=== PATIENT | male | born 1940 | race Caucasian/White ===

== ENCOUNTER 2020-03-08 11:02 | Inpatient (IN) | payer MEDICARE ==
[~2020-03-08] VITALS: Ht 170.2 cm; Wt 97.7 kg
[~2020-03-08 11:02] MED LIST: ALBU90OI61 INH; AMOX875 PO; ANDROGEL1.25 GM TD; ATEN25; ATEN50 PO; Antivert25 MG PO; Ativan0.5 MG PO; CEPH500 PO; CODGUAEL PO; CYCL10 PO; DIAZ5 PO; DIPATR PO; FOSI10 PO; HYDACE5 PO; HYDCHL25 PO; HYDMOR2 PO; IBUP400 PO; IBUP800 PO; LORA.5 PO; METF500C PO; NIAC500ER PO; Norco 5-325 Ta1 EACH PO; OMEP20ER PO; ONDA4ODT MM; OXYACE5T PO; PANT40 PO; PROCODE120 PO; PROP10 PO; PROP40 PO; Prednisone20 MG PO; SIMV10 PO; SIMV40 PO; SOMA350 MG PO; TADA10TA PO; Zithromax250 MG PO; Zofran Odt4 MG SL; [UNRECOGNIZED DRUG - OTHER]
[2020-03-08 12:08] LABS: BASOPHILS ABSOLUTE AUTO 0.08 K/mm3 (0.00-0.23); BASOPHILS PERCENT AUTO 1 % (0-2); EOSINOPHILS PERCENT AUTO 3 % (0-6); Hematocrit 46.7 % (37.0-53.0); Hemoglobin 14.5 g/dL (13.5-17.5); IMMATURE GRAN ABSOLUTE AUTO 0.01 K/mm3 (0.00-0.10); IMMATURE GRAN PERCENT AUTO 0 % (0-1); LYMPHOCYTES PERCENT AUTO 32 % (21-46); MONOCYTES ABSOLUTE AUTO 0.58 K/mm3 (0.16-1.47); MONOCYTES PERCENT AUTO 9 % (4-13); Mean Corpuscular HGB 26.6 pg (26.0-34.0); Mean Corpuscular Volume 86 fL (80-100); Mean Platelet Volume 9.4 fL (9.1-12.4); NEUTROPHILS ABSOLUTE AUTO 3.64 K/mm3 (1.96-9.15); NEUTROPHILS PERCENT AUTO 55 % (41-73); Platelet Count 209 K/mm3 (150-400); RDW Coefficient Variation 15.3 % (11.7-14.2); RDW Standard Deviation 47.2 fL (35.1-46.3); Red Blood Cell Count 5.45 M/mm3 (4.30-5.90); White Blood Cell Count 6.61 K/mm3 (4.00-11.30)
[2020-03-08 12:23] LABS: International Normalized Ratio 0.96; Prothrombin Time Results 10.3 Sec (9.7-11.5)
[2020-03-08 12:34] LABS: Alanine Aminotransfer (ALT/SGP 14 U/L (12-78); Albumin, Blood 2.8 g/dL (3.4-5.0); Albumin/Globulin Ratio 0.6 (0.8-1.8); Alk Phos 80 U/L (50-136); Anion Gap 7 mmol/L (6-16); Aspartate Aminotrans (AST/SGOT 17 U/L (12-37); Bilirubin, Total 0.4 mg/dL (0.1-1.0); Blood Urea Nitrogen 20 mg/dL (8-24); Bun/Creatinine Ratio 18.5 (12.0-20.0); CO2, Blood 27 mmol/L (21-32); Calcium, Blood 8.7 mg/dL (8.5-10.1); Chloride, Blood 105 mmol/L (98-108); Creatinine, Blood 1.08 mg/dL (0.60-1.20); Globulin, Blood 4.6 g/dL (2.2-4.0); Glomerular Filtration Rate >60 (60-); Glucose, Blood 100 mg/dL (70-99); Potassium, Blood 3.9 mmol/L (3.5-5.5); Sodium, Blood 139 mmol/L (136-145); Total Protein, Blood 7.4 g/dL (6.4-8.2)
[2020-03-08 14:10] LABS: Source, Urine Clean Catch
[2020-03-08 14:12] LABS: Bilirubin, Urine Neg (Neg); Blood, Urine Neg (Neg); Glucose Qualitative, Urine Neg (Neg); Ketones, Urine Neg (Neg); Leukocyte Esterase, Urine Neg (Neg); Nitrite, Urine Neg (Neg); Protein, Urine Neg (Neg); Urobilinogen, Urine NORM (Normal); pH, Urine 6.5 (5.0-8.0)
[2020-03-08 14:18] LABS: Appearance, Urine Clear (Clear); Color, Urine Yellow (P-Yellow)
[2020-03-08] MEDS ORDERED: HYDCHL25 PO (15:09)
[2020-03-08] MEDS ORDERED: ZESTRIL40 M2 PO (15:09)
[2020-03-08] MEDS ORDERED: Hydroxyzine HCl50 MG PO (15:10)
[2020-03-08] MEDS ORDERED: Augmentin Xr 11 EACH PO (15:11)
[2020-03-08 15:44] LABS: Hematocrit 41.9 % (37.0-53.0); Hemoglobin 13.1 g/dL (13.5-17.5)
--- NOTE | 2020-03-08 17:27 | NUR ---
Christian Rocha wa here to see the patient; States that he is calling Dr. Lugo as well as Dr. Lacey regarding the profuse amount of bleeding that the pt is having from his rectum at this time. The pt will need to be tranferred to ICU, per Christian. Gareth Garcia, putty and caulking supervisor, notified at this time.
--- NOTE | 2020-03-08 17:41 | NUR ---
Christian here again to see the patient, states that it is ok for the pt to remain in PCU until he goes to the mine laborer in about 20 minutes, then to ICU.
--- NOTE | 2020-03-08 18:17 | NUR ---
TAKEN TO MACHINE STUFFER AUTOMATIC BY MACHINE STUFFER AUTOMATIC STAFF, REPORT TO CATHY ESTRELLA IN ICU TO ASSUME CARE.
[2020-03-08 19:10] LABS: Adenovirus F 40/41 Not Detected (NOT DETECT); Astrovirus Not Detected (NOT DETECT); Campylobacter Sp Not Detected (NOT DETECT); Cryptosporidium Not Detected (NOT DETECT); Cyclospora Cayetanensis Not Detected (NOT DETECT); E. Coli O157 Not Detected (NOT DETECT); Entamoeba Histolytica Not Detected (NOT DETECT); Enteroaggregative E. coli-EAEC Not Detected (NOT DETECT); Enteropathogenic E. coli-EPEC Not Detected (NOT DETECT); Enterotoxigenic E. coli-ETEC Not Detected (NOT DETECT); Giardia Lamblia Not Detected (NOT DETECT); Norovirus GI/GII Not Detected (NOT DETECT); Plesiomonas Shigelloides Not Detected (NOT DETECT); Rotavirus A Not Detected (NOT DETECT); Salmonella Sp Not Detected (NOT DETECT); Sapovirus Not Detected (NOT DETECT); Shiga Toxin-prod E. coli-STEC Not Detected (NOT DETECT); Shigella/Enteroin E. coli-EIEC Not Detected (NOT DETECT); Vibrio Cholerae Not Detected (NOT DETECT); Vibrio Sp Not Detected (NOT DETECT); Yersinia Enterocolitica Not Detected (NOT DETECT)
--- NOTE | 2020-03-08 19:36 | NUR ---
PT TO ICU 13 VIA MARIUSZ WITH COVERED BUTTON MAKER RN, PT ALERT AND ORIENTED TO SELF, LOCATION, YEAR AND FOLLOWING DIRECTIONS. PT DENIES PAIN, SOB, OR NAUSEA. MONITOR SHOWS SINUS RHYTHM WIHT HR 60'S, BP LOW WITH MAPS>65, NS GTT FROM COVERED BUTTON MAKER INFUSING. PT DISCUSSED AT LENGTH HIS PREVIOUS HX OF GI BLEEDING AND HIS CONCERNS REGARDING HIS PREVIOUS CARE WHILE HE WAS IN [place], PT REPORTS NOT FEELING WELL EDUCATED ON APPROPRIATE PLAN OF CARE/LIFESTYLE CHANGES THAT SHOULD BE IMPLEMENTED. UPDATED PT ON CURRENT PLAN OF DRAWING LABS TO CHECK HGB LEVELS AND UPDATED PROVIDER NECESSARY. PT TO BED CRUZ, REPORTS NEEDING TO HAVE BM.
--- NOTE | 2020-03-08 20:02 | NUR ---
DR CHACON IN TO SEE PT, NOTIFIED THAT PT HAD APPROX 150ml DARK MAROON STOOL WITH CLOTS. PT DISCUSSING TREATMENT OPTIONS WITH DR CHACON.
[2020-03-08 20:09] LABS: Hematocrit 36.7 % (37.0-53.0); Hemoglobin 11.2 g/dL (13.5-17.5)
[2020-03-08 23:14] LABS: Hematocrit 33.2 % (37.0-53.0); Hemoglobin 10.2 g/dL (13.5-17.5)
--- NOTE | 2020-03-09 00:07 | NUR ---
HYPOTENSION PT WITH LARGE LIQUID MAROON BM WITH CLOTS, BP READING 70'S/50'S, NOTIFIED LAB TO COMPLETE HGB RE-DRAW STAT, RESULTS CALLED TO OPHELIA MILKING MACHINE OPERATOR, ORDER FOR 2 UNITS PRBC TRANSFUSION, 1L NS BOLUS. NS BOLUS INITIATED, UPDATED PT ON PLAN OF CARE. FINE CRACKLES TO BILAT LUNG BASES AFTER BOLUS, PT DENIES SOB, 94% ON RA. FIRST UNIT OF PRBC CURRENTLY INFUSING.
[2020-03-09 04:07] LABS: BASOPHILS ABSOLUTE AUTO 0.06 K/mm3 (0.00-0.23); BASOPHILS PERCENT AUTO 1 % (0-2); EOSINOPHILS ABSOLUTE AUTO 0.06 K/mm3 (0.00-0.68); EOSINOPHILS PERCENT AUTO 1 % (0-6); Hematocrit 31.2 % (37.0-53.0); Hemoglobin 9.9 g/dL (13.5-17.5); IMMATURE GRAN ABSOLUTE AUTO 0.02 K/mm3 (0.00-0.10); IMMATURE GRAN PERCENT AUTO 0 % (0-1); LYMPHOCYTES ABSOLUTE AUTO 1.91 K/mm3 (0.84-5.20); LYMPHOCYTES PERCENT AUTO 25 % (21-46); MONOCYTES ABSOLUTE AUTO 0.48 K/mm3 (0.16-1.47); MONOCYTES PERCENT AUTO 6 % (4-13); Mean Corpuscular HGB 27.7 pg (26.0-34.0); Mean Corpuscular HGB Conc 31.7 g/dL (31.5-36.5); Mean Corpuscular Volume 87 fL (80-100); Mean Platelet Volume 9.1 fL (9.1-12.4); NEUTROPHILS ABSOLUTE AUTO 5.11 K/mm3 (1.96-9.15); NEUTROPHILS PERCENT AUTO 67 % (41-73); Platelet Count 142 K/mm3 (150-400); RDW Coefficient Variation 15.2 % (11.7-14.2); RDW Standard Deviation 48.2 fL (35.1-46.3); Red Blood Cell Count 3.58 M/mm3 (4.30-5.90); White Blood Cell Count 7.64 K/mm3 (4.00-11.30)
[2020-03-09 04:34] LABS: Alanine Aminotransfer (ALT/SGP 9 U/L (12-78); Albumin, Blood 2.1 g/dL (3.4-5.0); Albumin/Globulin Ratio 0.8 (0.8-1.8); Alk Phos 51 U/L (50-136); Anion Gap 7 mmol/L (6-16); Aspartate Aminotrans (AST/SGOT 15 U/L (12-37); Bilirubin, Total 0.8 mg/dL (0.1-1.0); Blood Urea Nitrogen 19 mg/dL (8-24); Bun/Creatinine Ratio 20.7 (12.0-20.0); CO2, Blood 25 mmol/L (21-32); Calcium, Blood 7.1 mg/dL (8.5-10.1); Chloride, Blood 109 mmol/L (98-108); Creatinine, Blood 0.92 mg/dL (0.60-1.20); Globulin, Blood 2.8 g/dL (2.2-4.0); Glomerular Filtration Rate >60 (60-); Glucose, Blood 155 mg/dL (70-99); Sodium, Blood 141 mmol/L (136-145)
[2020-03-09 04:42] LABS: Total Protein, Blood 4.9 g/dL (6.4-8.2)
--- NOTE | 2020-03-09 05:32 | NUR ---
SHIFT SUMMARY PT AWAKE T/O MUCH OF SHIFT, REMAINS ORIENTED TO SELF, LOCATION, EVENT, YEAR AND FOLLOWING DIRECTIONS. O2 SATURATIONS>92% ON RA, BREIF PERIODS OF DESATURATIONS TO 86-89% WHILE SLEEPING LASTING LESS THAN 30 SECONDS. MONITOR SHOWS SINUS RHYTHM WITH HR 58-60'S, PT HYPOTENSIVE WITH MAPS>65, NS INFUSING @ 150ml/hr, 2ND UNIT OF PRBC INFUSING. R GROIN SITE DRESSING C/D/I, NO TENDERNESS OR HEMATOMA NOTED. PT WITH FREQUENT LIQUID TO JELLY MAROON BM, MORNING HGB AFTER FIRST UNIT OF PRBC 9.9. PT VOIDS INDEPENDENTLY WITH URINAL, REPOSITIONS SELF, USES CALL LIGHT APPROPRIATELY FOR ATTENDS CHANGE AND OTHER NEEDS. PT DENIES ANY SOB, PAIN OR [place] AT THIS TIME, RESTING COMFORTABLY IN BED, CALL LIGHT WITHIN REACH.
--- NOTE | 2020-03-09 07:53 | NUR ---
ASSUMED CARE PT WAS LAYING IN BED WITH A CALM DEMEANOR. BLOOD AND NS WERE BOTH RUNNING AT 125ML/HR. NURSE TURNED NS DOWN TO 10ML/HR WHILE BLOOD INFUSION RUNNING DUE TO NIGHT NURSE REPORTING CRACKLES IN THE LUNGS. PT WAS ASSISTED WITH USING THE URINAL AND WAS COOPERATIVE WITH HIS CARE.
[2020-03-09 08:59] LABS: Hematocrit 35.7 % (37.0-53.0); Hemoglobin 11.4 g/dL (13.5-17.5)
--- NOTE | 2020-03-09 09:18 | NUR ---
REVIEWED COMPUTER DISCOVERY TEACHER ASSESSMENT. WOULD ADD RIGHT GROIN SITE WITH CHG DRESSING. SITE SOFT, NONTENDER, NO SIGN OF BLEEDING, SWELLING OR HEMATOMA. PT SITTING ON BSC AT THIS TIME.
--- NOTE | 2020-03-09 12:40 | NUR ---
PT FINISHED THE GOLYTELY AND HAS BEEN PASSING CLEAR RED LIQUID VIA RECTUM. PT PREFERS TO SIT ON THE COMMODE FOR EPISODES OF FREQUENT PASSING OF LIQUID STOOL THEN WILL ASK FOR ATTENDS TO GET BACK INTO BED. HE WAS GIVEN A BED BATH AND [place] AREA APPEARS FREE OF REDNESS. PT ASKED FOR HIS TO BE CALLED AND UPDATED ON THE TIME OF HIS COLONSCOPY. A MESSAGE WAS LEFT WITH HER WITH NO RETURN CALL. PT GROIN SITE FROM ANGIO WAS CHECKED AND APPEARS FREE OF HEMATOMA FORMATION, SWELLING OR REDNESS.
--- NOTE | 2020-03-09 14:35 | NUR ---
PT CALLED RN INTO ROOM TO ASSESS BLOOD CLOT THAT HE PASSED. LARGE, ASSESSED STOOL WELL, LIQUID, MAROON, CLEAR EXCEPT FOR CLOTS. DR CONTRERAS CAME TO SEE PT AND MADE AWARE. DAY SURGERY CALLED TO SCHEDULE SCOPE AND THEY ARE AWARE WELL.
[2020-03-09 14:49] LABS: Hematocrit 34.7 % (37.0-53.0); Hemoglobin 11.1 g/dL (13.5-17.5)
--- NOTE | 2020-03-09 16:14 | NUR ---
PT IS AWAITING COLONOSCOPY SCHEDULED FOR 1629. PT PREFERS TO SIT ON THE BEDSIDE COMMODE DUE TO FREQUENT BOWEL MOVEMENTS. WALKER IS IN REACH SO THAT PATIENT CAN REPOSITION HIMSELF. HE IS PASSING BRIGHT RED STOOL AND SOME CLOTS. CIPRO IS RUNNING AT 100ML/HR, FLAGYL IS RUNNING AT 200ML/HR AND NS IS RUNNING AT 125ML/HR. PT IS CALM AND COOPERATIVE.
--- NOTE | 2020-03-09 17:19 | NUR ---
03/09/20 1719 FREDDIE HOLM History, Chart, Medications and Allergies reviewed before start of procedure. 3-LEAD EKG REVIEWED WITH PHYSICIAN PRIOR TO START OF PROCEDURE. O2 VIA N/C INTACT THROUGHOUT SEDATION/PROCEDURE. MONITOR INTACT WITH CONTINUOUS PULSE OXIMETRY AND INTERMITTENT BP. PATIENT DETERMINED TO BE ASA APPROPRIATE FOR PROPOFOL SEDATION PRIOR TO START OF PROCEDURE BY DR. CHACON.
--- NOTE | 2020-03-09 18:33 | NUR ---
DR. CHACON PERFORMED COLONOSCOPY AND INFORMED PT OF THE RESULTS. PT TO BE NOTIFIED BY DR. CHACON. SPOKE WITH DR. SANDY, POSSIBLE EGD TO [facility].
--- NOTE | 2020-03-09 19:19 | NUR ---
03/09/201918 Guerda Fabian History, Chart, Medications and Allergies reviewed before start of procedure. PATIENT CONFIRMS NPO STATUS AND AGREES WITH SCHEDULED PROCEDURE. MONITOR INTACT WITH CONTINUOUS PULSE OXIMETRY AND INTERMITTENT BP. O2 VIA N/C INTACT THROUGHOUT SEDATION/PROCEDURE. 3-LEAD EKG REVIEWED WITH PHYSICIAN PRIOR TO START OF PROCEDURE. Bite Block Placed. PATIENT DETERMINED TO BE ASA APPROPRIATE FOR PROPOFOL SEDATION PRIOR TO START OF PROCEDURE BY DR. CHACON.
[2020-03-09 20:31] LABS: Hematocrit 28.1 % (37.0-53.0); Hemoglobin 9.1 g/dL (13.5-17.5)
--- NOTE | 2020-03-09 20:41 | NUR ---
INTIAL SHIFT ASSESSMENT SCOPE TEAM RECOVERED PT AND REPORT RECIEVED FROM YAMILEX OFF GOING RN WELL DAYSHIFT RN. PT IS STABLE AT THIS TIME. PT IS ORIENTED TIMES THREE. HE DENIES ANY PAIN. HE IS PASSING GAS WITH NO BLOOD NOTED AT THIS TIME. HE IN ON RA WITH NO S/S OF SOB. VITALS ARE STABLE. PT IS ABLE TO USE CALL LIGHT AND THIS IS IN REACH. DR CHACON IN TO DISCUSS SENDING PT TO [facility] FOR FURTHER CARE. PT IS OK WITH THIS AND IS ON PHONE WITH . LAB IN TO DRAW A FOLLOW UP H AND H. PT HAS NS RUNNING AT 125ML ORDERED INTO PERIPHERAL IV TO LEFT HAND. ARM BOARD IN PLACE TO LEFT HAND. PT IS PLESANT AND THANKFUL FOR HIS CARE. WILL CON'T TO MONITOR AND KEEP HIM SAFE.
--- NOTE | 2020-03-09 22:51 | NUR ---
SHIFT UPDATE PT RECIEVED TRANSFER ORDERS TO [facility]. REPORT WAS CALLED TO RECIEVING DELORES RAPP. AMBULANCE CREW HERE TO TRANSFER PT. PT CON'T TO BE IN [employer]IR[employer] AND COOPERATIVE. PT WAS CLEANED UP FROM A BLOODY BOWEL MOVEMENT. BRIGHT RED WITH CLOTTS. PT WAS SL FOR TRANSFER UP TO [facility]. PT STABLE UPON LEAVING UNIT.
== END 2020-03-09 22:45 | disposition short-term general hospital (02) | DRG 346 ==
LOC: ER 11:02 → PCU 16:01 → ICUW 16:01 → PCU 17:04 → ICUW 18:11
PROVIDERS: Internal Medicine Gastroenterology; Nurse Practitioner Acute Care; Physician Assistant; ADMIT Internal Medicine
PROC: B4141ZZ Fluoroscopy of Superior Mesenteric Artery using Low Osmolar Contrast (ICD-10-PCS; 2020-03-08)
PROC: 0DJ08ZZ Inspection of Upper Intestinal Tract, Via Natural or Artificial Opening Endoscopic (ICD-10-PCS; 2020-03-09)
PROC: 0D9E8ZZ Drainage of Large Intestine, Via Natural or Artificial Opening Endoscopic (ICD-10-PCS; principal; 2020-03-09 16:30)
DX: K57.93 Diverticulitis of intestine, part unspecified, without perforation or abscess with bleeding (principal); Z79.84 Long term (current) use of oral hypoglycemic drugs; Z98.52 Vasectomy status; I10 Essential (primary) hypertension; G62.9 Polyneuropathy, unspecified; E11.9 Type 2 diabetes mellitus without complications; F41.1 Generalized anxiety disorder; H54.8 Legal blindness, as defined in USA; E78.5 Hyperlipidemia, unspecified; J84.10 Pulmonary fibrosis, unspecified; Z77.090 Contact with and (suspected) exposure to asbestos; H35.3290 Exudative age-related macular degeneration, unspecified eye, stage unspecified; H66.92 Otitis media, unspecified, left ear; K63.5 Polyp of colon; K64.8 Other hemorrhoids; F41.0 Panic disorder [episodic paroxysmal anxiety]
CPT/HCPCS: 0097U; 36245; 36415; 36430; 74177; 75726; 80053; 81003; 82330; 82947; 83690; 85014; 85018; 85025; 85610; 85730; 86140; 86850; 86900; 86901; 86923; 93005; 93010; 96374-59; 99152; 99153; 99285-25; C1769; C1887; C1894; C9113; J0171; J0744; J1644; J2250; J2405; J2704; J3010; J7030; J7050; J7120; P9016; Q9967

== ENCOUNTER 2020-07-17 22:52 | Emergency (ER) | payer OTHER ==
[~2020-07-17] VITALS: Ht 170.2 cm; Wt 95.2 kg
[~2020-07-17 22:52] MED LIST changes: +Augmentin Xr 11 EACH PO; +Hydroxyzine HCl50 MG PO; +ZESTRIL40 M2 PO
[2020-07-17 23:31] LABS: BASOPHILS ABSOLUTE AUTO 0.06 K/mm3 (0.00-0.23); BASOPHILS PERCENT AUTO 1 % (0-2); EOSINOPHILS ABSOLUTE AUTO 0.19 K/mm3 (0.00-0.68); EOSINOPHILS PERCENT AUTO 3 % (0-6); Hematocrit 45.7 % (37.0-53.0); Hemoglobin 14.1 g/dL (13.5-17.5); IMMATURE GRAN ABSOLUTE AUTO 0.02 K/mm3 (0.00-0.10); IMMATURE GRAN PERCENT AUTO 0 % (0-1); LYMPHOCYTES ABSOLUTE AUTO 1.56 K/mm3 (0.84-5.20); LYMPHOCYTES PERCENT AUTO 25 % (21-46); MONOCYTES ABSOLUTE AUTO 0.69 K/mm3 (0.16-1.47); MONOCYTES PERCENT AUTO 11 % (4-13); Mean Corpuscular HGB 25.9 pg (26.0-34.0); Mean Corpuscular HGB Conc 30.9 g/dL (31.5-36.5); Mean Corpuscular Volume 84 fL (80-100); Mean Platelet Volume 9.1 fL (9.1-12.4); NEUTROPHILS ABSOLUTE AUTO 3.72 K/mm3 (1.96-9.15); NEUTROPHILS PERCENT AUTO 60 % (41-73); Platelet Count 165 K/mm3 (150-400); RDW Coefficient Variation 23.7 % (11.7-14.2); RDW Standard Deviation 70.2 fL (35.1-46.3); Red Blood Cell Count 5.45 M/mm3 (4.30-5.90); White Blood Cell Count 6.24 K/mm3 (4.00-11.30)
[2020-07-17 23:53] LABS: Alanine Aminotransfer (ALT/SGP 23 U/L (12-78); Albumin, Blood 3.1 g/dL (3.4-5.0); Albumin/Globulin Ratio 0.7 (0.8-1.8); Alk Phos 82 U/L (50-136); Anion Gap 5 mmol/L (6-16); Aspartate Aminotrans (AST/SGOT 34 U/L (12-37); Bilirubin, Total 0.5 mg/dL (0.1-1.0); Blood Urea Nitrogen 15 mg/dL (8-24); Bun/Creatinine Ratio 17.8 (12.0-20.0); CO2, Blood 26 mmol/L (21-32); Calcium, Blood 8.4 mg/dL (8.5-10.1); Chloride, Blood 106 mmol/L (98-108); Creatinine, Blood 0.85 mg/dL (0.60-1.20); Globulin, Blood 4.5 g/dL (2.2-4.0); Glomerular Filtration Rate >60 (60-); Glucose, Blood 95 mg/dL (70-99); Potassium, Blood 4.4 mmol/L (3.5-5.5); Sodium, Blood 137 mmol/L (136-145); Total Protein, Blood 7.6 g/dL (6.4-8.2); Troponin I <0.015 ng/mL (0.000-0.040)
== END 2020-07-18 02:38 | disposition home or self-care (01) ==
LOC: ER 22:52
PROVIDERS: Physician Assistant
DX: J18.9 Pneumonia, unspecified organism (principal); I10 Essential (primary) hypertension; Z87.891 Personal history of nicotine dependence; Z20.828 Contact with and (suspected) exposure to other viral communicable diseases
CPT/HCPCS: 36415; 71046; 80053; 83880; 84484; 85025; 93005; 93010; 99283-25; U0003

== ENCOUNTER 2020-10-26 10:30 | Day surgery (SDC) | payer OTHER ==
[~2020-10-26] VITALS: Ht 167.6 cm; Wt 96.0 kg
[2020-10-26] MEDS ORDERED: ZYRTEC10 M2 (12:38)
[2020-10-26] MEDS ORDERED: OMEP20ER (12:38)
[2020-12-13] MEDS ORDERED: ATEN50 PO (13:22)
[2020-12-13] MEDS ORDERED: OMEP20ER PO (13:23)
[2020-12-13] MEDS ORDERED: ANORO ELLIPTA1 EACH INH (13:23)
[2020-12-13] MEDS ORDERED: HYDCHL25 PO (13:23)
[2020-12-13] MEDS ORDERED: PROAIR RESPICL90 MCG INH (13:23)
== END 2020-10-26 15:38 | disposition home or self-care (01) ==
LOC: ORSCSDS 10:30
PROVIDERS: Internal Medicine Gastroenterology
PROC: 0DBK8ZX Excision of Ascending Colon, Via Natural or Artificial Opening Endoscopic, Diagnostic (ICD-10-PCS; principal; 2020-10-26 11:30)
PROC: 0DBH8ZX Excision of Cecum, Via Natural or Artificial Opening Endoscopic, Diagnostic (ICD-10-PCS; principal; 2020-10-26 11:30)
PROC: 0DBM8ZX Excision of Descending Colon, Via Natural or Artificial Opening Endoscopic, Diagnostic (ICD-10-PCS; principal; 2020-10-26 11:30)
DX: K62.5 Hemorrhage of anus and rectum (principal); Z86.010 Personal history of colon polyps; D12.2 Benign neoplasm of ascending colon; D12.0 Benign neoplasm of cecum; K63.5 Polyp of colon; K57.30 Diverticulosis of large intestine without perforation or abscess without bleeding; K64.8 Other hemorrhoids; I10 Essential (primary) hypertension; E11.9 Type 2 diabetes mellitus without complications; E78.5 Hyperlipidemia, unspecified; Z79.899 Other long term (current) drug therapy
CPT/HCPCS: 82947; 88305; J2704; J7120

== ENCOUNTER 2020-12-21 10:04 | Day surgery (SDC) | payer OTHER ==
[~2020-12-21] VITALS: Ht 167.6 cm; Wt 97.4 kg
[~2020-12-21 10:04] MED LIST changes: +ANORO ELLIPTA1 EACH INH; +OMEP20ER; +PROAIR RESPICL90 MCG INH; +ZYRTEC10 M2
== END 2020-12-21 11:44 | disposition home or self-care (01) ==
LOC: ORSCSDS 10:04
PROVIDERS: Internal Medicine Gastroenterology
PROC: 0DB68ZX Excision of Stomach, Via Natural or Artificial Opening Endoscopic, Diagnostic (ICD-10-PCS; principal; 2020-12-21 11:30)
PROC: 0DB98ZX Excision of Duodenum, Via Natural or Artificial Opening Endoscopic, Diagnostic (ICD-10-PCS; principal; 2020-12-21 11:30)
DX: K21.9 Gastro-esophageal reflux disease without esophagitis (principal); R10.9 Unspecified abdominal pain; E11.9 Type 2 diabetes mellitus without complications; K44.9 Diaphragmatic hernia without obstruction or gangrene; I10 Essential (primary) hypertension; E78.5 Hyperlipidemia, unspecified; F41.8 Other specified anxiety disorders; Z79.899 Other long term (current) drug therapy
CPT/HCPCS: 88305; 88342; J2704; J7120

== ENCOUNTER 2021-10-09 12:08 | Emergency (ER) | payer OTHER ==
[~2021-10-09] VITALS: Ht 170.2 cm; Wt 95.2 kg
[2021-10-09 13:25] LABS: BASOPHILS ABSOLUTE AUTO 0.05 K/mm3 (0.00-0.23); BASOPHILS PERCENT AUTO 1 % (0-2); EOSINOPHILS ABSOLUTE AUTO 0.04 K/mm3 (0.00-0.68); EOSINOPHILS PERCENT AUTO 1 % (0-6); Hematocrit 51.2 % (37.0-53.0); Hemoglobin 16.5 g/dL (13.5-17.5); IMMATURE GRAN ABSOLUTE AUTO 0.02 K/mm3 (0.00-0.10); IMMATURE GRAN PERCENT AUTO 0 % (0-1); LYMPHOCYTES ABSOLUTE AUTO 1.69 K/mm3 (0.84-5.20); LYMPHOCYTES PERCENT AUTO 22 % (21-46); MONOCYTES ABSOLUTE AUTO 0.76 K/mm3 (0.16-1.47); MONOCYTES PERCENT AUTO 10 % (4-13); Mean Corpuscular HGB 27.6 pg (26.0-34.0); Mean Corpuscular HGB Conc 32.2 g/dL (31.5-36.5); Mean Corpuscular Volume 86 fL (80-100); Mean Platelet Volume 9.1 fL (9.1-12.4); NEUTROPHILS ABSOLUTE AUTO 5.06 K/mm3 (1.96-9.15); NEUTROPHILS PERCENT AUTO 66 % (41-73); Platelet Count 204 K/mm3 (150-400); RDW Coefficient Variation 14.6 % (11.7-14.2); RDW Standard Deviation 45.9 fL (35.1-46.3); Red Blood Cell Count 5.98 M/mm3 (4.30-5.90); White Blood Cell Count 7.62 K/mm3 (4.00-11.30)
[2021-10-09 13:56] LABS: Alanine Aminotransfer (ALT/SGP 16 U/L (12-78); Albumin, Blood 2.8 g/dL (3.4-5.0); Albumin/Globulin Ratio 0.5 (0.8-1.8); Alk Phos 76 U/L (50-136); Anion Gap 9 mmol/L (6-16); Aspartate Aminotrans (AST/SGOT 14 U/L (12-37); Bilirubin, Total 0.7 mg/dL (0.1-1.0); Blood Urea Nitrogen 26 mg/dL (8-24); CO2, Blood 26 mmol/L (21-32); Calcium, Blood 9.1 mg/dL (8.5-10.1); Chloride, Blood 101 mmol/L (98-108); Creatinine, Blood 1.73 mg/dL (0.60-1.20); Globulin, Blood 5.1 g/dL (2.2-4.0); Glomerular Filtration Rate 38 (60-); Glucose, Blood 102 mg/dL (70-99); Potassium, Blood 3.7 mmol/L (3.5-5.5); Sodium, Blood 136 mmol/L (136-145); Total Protein, Blood 7.9 g/dL (6.4-8.2); Troponin I <0.015 ng/mL (0.000-0.040)
[2021-10-09 16:26] LABS: Source, Urine Clean Catch
[2021-10-09 16:32] LABS: Appearance, Urine Hazy (Clear); Blood, Urine 1+ (Neg); Color, Urine Amber (P-Yellow); Glucose Qualitative, Urine Neg (Neg); Ketones, Urine 1+ (Neg); Leukocyte Esterase, Urine 1+ (Neg); Nitrite, Urine Neg (Neg); Protein, Urine 2+ (Neg); Specific Gravity, Urine 1.025 (1.003-1.022); Urobilinogen, Urine 2+ (Normal)
[2021-10-09 16:37] LABS: Bilirubin, Urine 2+ (Neg)
[2021-10-09 16:39] LABS: Bacteria Few /hpf; Mucus Mod (0-Heavy); Red Blood Cells, Urine 0-2 /hpf (0-2); Squamous Epithelial Cells Rare /hpf (Few)
== END 2021-10-09 17:38 | disposition home or self-care (01) ==
LOC: ER 12:08
PROVIDERS: Physician Assistant
DX: K52.9 Noninfective gastroenteritis and colitis, unspecified (principal); I10 Essential (primary) hypertension; R73.03 Prediabetes; Z79.899 Other long term (current) drug therapy; Z87.891 Personal history of nicotine dependence
CPT/HCPCS: 36415; 71046; 74176; 80053; 81001; 83690; 84484; 85025; 87086; 93005; 93010; 99284-25

== ENCOUNTER 2021-10-26 20:51 | Emergency (ER) | payer OTHER ==
[~2021-10-26] VITALS: Ht 170.2 cm; Wt 90.7 kg
[2021-10-26 22:04] LABS: BASOPHILS ABSOLUTE AUTO 0.07 K/mm3 (0.00-0.23); BASOPHILS PERCENT AUTO 1 % (0-2); EOSINOPHILS ABSOLUTE AUTO 0.24 K/mm3 (0.00-0.68); EOSINOPHILS PERCENT AUTO 4 % (0-6); Hematocrit 45.5 % (37.0-53.0); IMMATURE GRAN ABSOLUTE AUTO 0.01 K/mm3 (0.00-0.10); IMMATURE GRAN PERCENT AUTO 0 % (0-1); LYMPHOCYTES ABSOLUTE AUTO 1.63 K/mm3 (0.84-5.20); LYMPHOCYTES PERCENT AUTO 25 % (21-46); MONOCYTES ABSOLUTE AUTO 0.76 K/mm3 (0.16-1.47); MONOCYTES PERCENT AUTO 12 % (4-13); Mean Corpuscular HGB 27.6 pg (26.0-34.0); Mean Corpuscular Volume 84 fL (80-100); Mean Platelet Volume 9.4 fL (9.1-12.4); NEUTROPHILS ABSOLUTE AUTO 3.89 K/mm3 (1.96-9.15); NEUTROPHILS PERCENT AUTO 59 % (41-73); Platelet Count 189 K/mm3 (150-400); RDW Coefficient Variation 14.1 % (11.7-14.2); Red Blood Cell Count 5.44 M/mm3 (4.30-5.90)
[2021-10-26 22:27] LABS: Alanine Aminotransfer (ALT/SGP 14 U/L (12-78); Albumin, Blood 3.3 g/dL (3.4-5.0); Albumin/Globulin Ratio 0.7 (0.8-1.8); Alk Phos 77 U/L (50-136); Anion Gap 11 mmol/L (6-16); Aspartate Aminotrans (AST/SGOT 17 U/L (12-37); Bilirubin, Total 0.8 mg/dL (0.1-1.0); Blood Urea Nitrogen 19 mg/dL (8-24); Bun/Creatinine Ratio 18.3 (12.0-20.0); CO2, Blood 26 mmol/L (21-32); Calcium, Blood 8.9 mg/dL (8.5-10.1); Chloride, Blood 100 mmol/L (98-108); Creatinine, Blood 1.04 mg/dL (0.60-1.20); Globulin, Blood 4.8 g/dL (2.2-4.0); Glomerular Filtration Rate >60 (60-); Glucose, Blood 91 mg/dL (70-99); Potassium, Blood 3.4 mmol/L (3.5-5.5); Sodium, Blood 137 mmol/L (136-145); Total Protein, Blood 8.1 g/dL (6.4-8.2); Troponin I <0.015 ng/mL (0.000-0.040)
[2021-10-27] MEDS ORDERED: LEVO750 PO (02:47)
[2021-10-27] MEDS ORDERED: Ventolin/Prove6.7 GM INH (13:10)
== END 2021-10-27 03:18 | disposition home or self-care (01) ==
LOC: ER 20:51
PROVIDERS: Physician Assistant
DX: J18.9 Pneumonia, unspecified organism (principal); I10 Essential (primary) hypertension; Z79.899 Other long term (current) drug therapy
CPT/HCPCS: 71045; 80053; 84484; 85025; 93005; 93010; 99284-25; A9270

== ENCOUNTER 2021-10-27 10:34 | Emergency (ER) | payer OTHER ==
[~2021-10-27] VITALS: Ht 170.2 cm; Wt 90.7 kg
[~2021-10-27 10:34] MED LIST changes: +LEVO750 PO
[2021-10-27 11:26] LABS: BASOPHILS ABSOLUTE AUTO 0.06 K/mm3 (0.00-0.23); BASOPHILS PERCENT AUTO 1 % (0-2); EOSINOPHILS ABSOLUTE AUTO 0.13 K/mm3 (0.00-0.68); EOSINOPHILS PERCENT AUTO 2 % (0-6); Hematocrit 46.3 % (37.0-53.0); Hemoglobin 15.2 g/dL (13.5-17.5); IMMATURE GRAN PERCENT AUTO 0 % (0-1); LYMPHOCYTES ABSOLUTE AUTO 1.42 K/mm3 (0.84-5.20); LYMPHOCYTES PERCENT AUTO 24 % (21-46); MONOCYTES ABSOLUTE AUTO 0.79 K/mm3 (0.16-1.47); MONOCYTES PERCENT AUTO 14 % (4-13); Mean Corpuscular HGB 27.7 pg (26.0-34.0); Mean Corpuscular HGB Conc 32.8 g/dL (31.5-36.5); Mean Corpuscular Volume 84 fL (80-100); Mean Platelet Volume 9.3 fL (9.1-12.4); NEUTROPHILS ABSOLUTE AUTO 3.47 K/mm3 (1.96-9.15); NEUTROPHILS PERCENT AUTO 59 % (41-73); Platelet Count 181 K/mm3 (150-400); RDW Coefficient Variation 14.2 % (11.7-14.2); RDW Standard Deviation 43.6 fL (35.1-46.3); Red Blood Cell Count 5.49 M/mm3 (4.30-5.90); White Blood Cell Count 5.87 K/mm3 (4.00-11.30)
[2021-10-27 11:49] LABS: Alanine Aminotransfer (ALT/SGP 14 U/L (12-78); Albumin, Blood 3.1 g/dL (3.4-5.0); Albumin/Globulin Ratio 0.6 (0.8-1.8); Alk Phos 76 U/L (50-136); Anion Gap 10 mmol/L (6-16); Aspartate Aminotrans (AST/SGOT 24 U/L (12-37); Bilirubin, Total 0.8 mg/dL (0.1-1.0); Blood Urea Nitrogen 22 mg/dL (8-24); Bun/Creatinine Ratio 20.8 (12.0-20.0); CO2, Blood 26 mmol/L (21-32); Calcium, Blood 8.9 mg/dL (8.5-10.1); Chloride, Blood 100 mmol/L (98-108); Creatinine, Blood 1.06 mg/dL (0.60-1.20); Globulin, Blood 4.9 g/dL (2.2-4.0); Glomerular Filtration Rate >60 (60-); Glucose, Blood 89 mg/dL (70-99); Potassium, Blood 3.8 mmol/L (3.5-5.5); Sodium, Blood 136 mmol/L (136-145)
[2021-10-27] MEDS ORDERED: Ventolin/Prove6.7 GM INH (13:10)
== END 2021-10-27 13:22 | disposition home or self-care (01) ==
LOC: ER 10:34
PROVIDERS: Emergency Medicine
DX: J18.9 Pneumonia, unspecified organism (principal); I10 Essential (primary) hypertension; Z79.899 Other long term (current) drug therapy; Z87.891 Personal history of nicotine dependence
CPT/HCPCS: 36415; 71045; 80053; 85025; 94640; 99284-25

== ENCOUNTER 2022-09-06 10:01 | Emergency (ER) | payer OTHER ==
[~2022-09-06 10:01] MED LIST changes: +Ventolin/Prove6.7 GM INH
[2022-09-06] MEDS ORDERED: Tamiflu75 MG PO ×2 (13:06)
== END 2022-09-06 13:24 | disposition home or self-care (01) ==
DX: J10.1 Influenza due to other identified influenza virus with other respiratory manifestations (principal); Z20.822 Contact with and (suspected) exposure to COVID-19

== ENCOUNTER 2022-11-17 19:33 | Inpatient (IN) | payer OTHER ==
[~2022-11-17] VITALS: Ht 167.6 cm; Wt 84.2 kg
[~2022-11-17 19:33] MED LIST changes: +Tamiflu75 MG PO
[2022-11-17 20:08] LABS: BASOPHILS ABSOLUTE AUTO 0.08 K/mm3 (0.00-0.23); BASOPHILS PERCENT AUTO 1 % (0-2); EOSINOPHILS ABSOLUTE AUTO 0.07 K/mm3 (0.00-0.68); EOSINOPHILS PERCENT AUTO 1 % (0-6); Hematocrit 45.5 % (37.0-53.0); IMMATURE GRAN ABSOLUTE AUTO 0.04 K/mm3 (0.00-0.10); IMMATURE GRAN PERCENT AUTO 0 % (0-1); LYMPHOCYTES ABSOLUTE AUTO 1.39 K/mm3 (0.84-5.20); LYMPHOCYTES PERCENT AUTO 13 % (21-46); MONOCYTES ABSOLUTE AUTO 1.15 K/mm3 (0.16-1.47); MONOCYTES PERCENT AUTO 11 % (4-13); Mean Corpuscular HGB 28.8 pg (26.0-34.0); Mean Corpuscular Volume 87 fL (80-100); Mean Platelet Volume 9.6 fL (9.1-12.4); NEUTROPHILS ABSOLUTE AUTO 7.68 K/mm3 (1.96-9.15); NEUTROPHILS PERCENT AUTO 74 % (41-73); Platelet Count 209 K/mm3 (150-400); RDW Coefficient Variation 13.7 % (11.7-14.2); RDW Standard Deviation 44.4 fL (35.1-46.3); Red Blood Cell Count 5.21 M/mm3 (4.30-5.90); White Blood Cell Count 10.41 K/mm3 (4.00-11.30)
[2022-11-17 20:26] LABS: Influenza A, PCR NEGATIVE (NEGATIVE); Influenza B, PCR NEGATIVE (NEGATIVE); Resp Syncytial Virus, PCR NEGATIVE (NEGATIVE); SARS-Cov-2 (COVID-19) PCR, MMC NEGATIVE (NEGATIVE)
[2022-11-17 20:27] LABS: Albumin, Blood 2.6 g/dL (3.4-5.0); Albumin/Globulin Ratio 0.5 (0.8-1.8); Bilirubin, Total 0.6 mg/dL (0.1-1.0); Bun/Creatinine Ratio 27.6 (12.0-20.0); Calcium, Blood 8.8 mg/dL (8.5-10.1); Creatinine, Blood 1.34 mg/dL (0.60-1.20); Globulin, Blood 5.2 g/dL (2.2-4.0); Potassium, Blood 3.6 mmol/L (3.5-5.5); Total Protein, Blood 7.8 g/dL (6.4-8.2)
[2022-11-18] MEDS ORDERED: LISI20 (00:26)
[2022-11-18 05:10] LABS: BASOPHILS ABSOLUTE AUTO 0.07 K/mm3 (0.00-0.23); BASOPHILS PERCENT AUTO 1 % (0-2); EOSINOPHILS ABSOLUTE AUTO 0.07 K/mm3 (0.00-0.68); EOSINOPHILS PERCENT AUTO 1 % (0-6); Hematocrit 39.9 % (37.0-53.0); Hemoglobin 13.1 g/dL (13.5-17.5); IMMATURE GRAN ABSOLUTE AUTO 0.04 K/mm3 (0.00-0.10); IMMATURE GRAN PERCENT AUTO 0 % (0-1); LYMPHOCYTES ABSOLUTE AUTO 1.82 K/mm3 (0.84-5.20); LYMPHOCYTES PERCENT AUTO 17 % (21-46); MONOCYTES ABSOLUTE AUTO 1.21 K/mm3 (0.16-1.47); MONOCYTES PERCENT AUTO 11 % (4-13); Mean Corpuscular HGB 28.8 pg (26.0-34.0); Mean Corpuscular HGB Conc 32.8 g/dL (31.5-36.5); Mean Corpuscular Volume 88 fL (80-100); Mean Platelet Volume 10.1 fL (9.1-12.4); NEUTROPHILS ABSOLUTE AUTO 7.44 K/mm3 (1.96-9.15); NEUTROPHILS PERCENT AUTO 70 % (41-73); Platelet Count 190 K/mm3 (150-400); RDW Coefficient Variation 13.7 % (11.7-14.2); RDW Standard Deviation 44.4 fL (35.1-46.3); Red Blood Cell Count 4.55 M/mm3 (4.30-5.90); White Blood Cell Count 10.65 K/mm3 (4.00-11.30)
[2022-11-18 05:43] LABS: Albumin, Blood 2.3 g/dL (3.4-5.0); Albumin/Globulin Ratio 0.5 (0.8-1.8); Bilirubin, Total 0.8 mg/dL (0.1-1.0); Bun/Creatinine Ratio 27.9 (12.0-20.0); Calcium, Blood 8.4 mg/dL (8.5-10.1); Creatinine, Blood 1.22 mg/dL (0.60-1.20); Globulin, Blood 4.4 g/dL (2.2-4.0); Potassium, Blood 3.4 mmol/L (3.5-5.5); Total Protein, Blood 6.7 g/dL (6.4-8.2)
--- NOTE | 2022-11-18 07:20 | NUR ---
GYM TEACHER SUMMARY: A&Ox4. PLEASANT AND COOPERATIVE WITH CARE. CALLS APPROPRIATELY AND IS ABLE TO COMMUNICATE NEEDS EFFECTIVELY. LEGALLY BLIND D/T MACULAR DEGENERATION AND REQUIRES PHYSICAL PLACEMENT OF THINGS WITH VERBAL CUES AND REMINDERS TO THEIR WHEREABOUTS. GIVEN PRN COUGH MEDICINE UPON ARRIVAL TO MED FLOOR AND SLEPT FOR SEVERAL HOURS, LATER CALLING TO STATE IT WAS THE BEST HE HAS BEEN ABLE TO SLEEP IN SEVERAL WEEKS. LABS DRAWN THIS AM; NO CRITICAL RESULTS RECEIVED. WILL REPORT TO ONCOMING RN.
[2022-11-18 08:02] LABS: Base Excess Venous 4.1 mmol/L; Bicarbonate Venous 27.2 mmol/L (24.0-30.0); PCO2 Venous 44.2 mmHg (38-42); pH Blood Venous 7.42 (7.34-7.37)
--- NOTE | 2022-11-18 16:07 | NUR ---
SHIFT SUMMARY PATIENT IS ALERT AND ORIENTED. PATIENT HAS BEEN PLEASENT AND COOPERATIVE WITH CARE. PATIENT HAS HAD LOW BP DURING MORNING VITALS. PATIENT HAD APPROX 450ML INFUSED. PATIENT HAS HAD BP RISE TO 100/63. PATIENT HAS HAD NO OTHER ACUTE EVENTS THIS SHIFT. VITAL SIGNS REVIEWED. PATIENT HAS HAD NO COMPLAINTS OF PAIN, NAUSEA, SOB OR VOMITTING THIS SHIFT. PATIENT HAS HAD PRODUCTIVE COUGH THIS SHIFT. BED IN LOCKED AND LOWEST POSITION. CALL LIGHT IN PLACE. WILL MONITOR UNTIL SHIFT CHANGE.
--- NOTE | 2022-11-19 02:00 | NUR ---
PT HAD ~20 SECOND RUN OF VENTRICULAR BIGEMINY EARLY THIS MORNING. PT WAS ASYMPTOMATIC AND SLEEPING AT THE TIME. HOSPITALIST DR. SEGOVIA NOTIFIED. ORDERED CMP TO BE COMPLETED WITH MORNING LABS AND TO CONTINUE TO MONITOR.
--- NOTE | 2022-11-19 04:01 | NUR ---
PT COMPLAINED OF INTENSE PAIN ASSOCIATED WITH IV IN LAC EARLY IN SHIFT, REPLACED WITH IV IN RIGHT HAND. EARLY IN MORNING SHORT FILLER BUNCH MACHINE OPERATOR REPORTED ~20 SECOND RUN OF VENTRICULAR BIGEMINY. PATIENT ASYMPTOMATIC. SEE RELATED NOTE FOR MORE DETAILS. PATIENT AWOKE ABOUT 0300 IN A MANIC STATE, FLIGHT OF IDEAS. HYPER FIXATED ON TELEMETRY BOX, VOICED THAT IT MADE HIM FEEL LIKE HE WAS A PRISONER AND THAT HE DOESN'T DESERVE TO HAVE IT ON SINCE NOBODY EXPLAINED WHAT IT IS FOR. LONG CONVERSATION ABOUT TELEMETRY BOX AND ITS PURPOSE. DURING CONVERSATION, PATIENT VOICED HISTORY OF SUICIDAL IDEATION AND THE FACT THAT HE HAS A PLAN IN PLACE IN CASE HE EVER DECIDES TO KILL HIMSELF. NOTED THAT HE DOES NOT FEEL THE DESIRE TO KILL HIMSELF NOW BUT FEELS THAT THE TELEMETRY BOX IS PUSHING HIM TOWARDS SUICIDE. CLARIFIED WITH PATIENT THAT HE DOES NOT FEEL ANY DESIRE TO KILL HIMSELF NOW AND ASKED IF HE WOULD INFORM STAFF IF HE DID. PATIENT AGREED THAT HE DOES NOT CURRENTLY FEEL SUICIDAL AND DOES NOT WANT TO KILL HIMSELF. REMOVED TELEMETRY BOX PER PATIENT REQUEST. NOTIFIED SHORT FILLER BUNCH MACHINE OPERATOR. NOTIFIED DR. SEGOVIA OF REMOVAL OF TELEMETRY BOX AND CONVERSATION WITH PATIENT REGARDING SI. DR. SEGOVIA VOICED UNDERSTANDING AND ASKED US TO CONTINUE TO MONITOR. PATIENT PLANS ON TALKING WITH ON ROUNDS ABOUT TELEMETRY BOX AND POSSIBLY PUTTING BACK ON AT THAT TIME. BEFORE LEAVING ROOM PATIENT LIED BACK DOWN IN BED BUT WAS DOUBTFUL HE WOULD BE ABLE TO GO BACK TO SLEEP. CALL LIGHT LEFT WITHIN REACH. WILL CONTINUE TO CLOSELY MONITOR.
[2022-11-19 05:25] LABS: BASOPHILS ABSOLUTE AUTO 0.06 K/mm3 (0.00-0.23); BASOPHILS PERCENT AUTO 1 % (0-2); EOSINOPHILS PERCENT AUTO 1 % (0-6); Hematocrit 39.1 % (37.0-53.0); Hemoglobin 12.9 g/dL (13.5-17.5); Mean Corpuscular HGB 28.8 pg (26.0-34.0); Mean Corpuscular Volume 87 fL (80-100); Mean Platelet Volume 9.9 fL (9.1-12.4); Platelet Count 223 K/mm3 (150-400); RDW Coefficient Variation 13.7 % (11.7-14.2); RDW Standard Deviation 44.2 fL (35.1-46.3); Red Blood Cell Count 4.48 M/mm3 (4.30-5.90); White Blood Cell Count 8.26 K/mm3 (4.00-11.30)
[2022-11-19 05:29] LABS: IMMATURE GRAN ABSOLUTE AUTO 0.03 K/mm3 (0.00-0.10); IMMATURE GRAN PERCENT AUTO 0 % (0-1); LYMPHOCYTES ABSOLUTE AUTO 1.13 K/mm3 (0.84-5.20); LYMPHOCYTES PERCENT AUTO 14 % (21-46); MONOCYTES ABSOLUTE AUTO 0.84 K/mm3 (0.16-1.47); MONOCYTES PERCENT AUTO 10 % (4-13); NEUTROPHILS PERCENT AUTO 74 % (41-73)
[2022-11-19 05:40] LABS: Alanine Aminotransfer (ALT/SGP 12 U/L (12-78); Albumin, Blood 2.3 g/dL (3.4-5.0); Albumin/Globulin Ratio 0.5 (0.8-1.8); Alk Phos 73 U/L (50-136); Anion Gap 9 mmol/L (6-16); Aspartate Aminotrans (AST/SGOT 10 U/L (12-37); Bilirubin, Total 0.6 mg/dL (0.1-1.0); Blood Urea Nitrogen 26 mg/dL (8-24); Bun/Creatinine Ratio 26.1 (12.0-20.0); CO2, Blood 26 mmol/L (21-32); Calcium, Blood 8.7 mg/dL (8.5-10.1); Chloride, Blood 100 mmol/L (98-108); Glomerular Filtration Rate 76 (60-); Glucose, Blood 123 mg/dL (70-99); Phosphorus, Blood 3.1 mg/dL (2.5-4.9); Sodium, Blood 135 mmol/L (136-145); Total Protein, Blood 7.3 g/dL (6.4-8.2)
[2022-11-19 08:50] LABS: Magnesium, Blood 2.3 mg/dL (1.6-2.4)
[2022-11-19 12:42] LABS: Bun/Creatinine Ratio 24.2 (12.0-20.0); Creatinine, Blood 0.91 mg/dL (0.60-1.20); Potassium, Blood 3.7 mmol/L (3.5-5.5)
[2022-11-19] MEDS ORDERED: ALBU2.5V5 INH (13:42)
[2022-11-19] MEDS ORDERED: Ciprofloxacin2.5 ML IO (13:45)
[2022-11-19] MEDS ORDERED: ROBITUSSIN DM PO (14:11)
[2022-11-19] MEDS ORDERED: CEFP200 PO (14:11)
[2022-11-19] MEDS ORDERED: VISBIOME 112.51 EACH PO (14:11)
--- NOTE | 2022-11-19 15:15 | NUR ---
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 SEVERAL TIMES HE APPEARED TO BE ACTING AND WOULD QUOTE DIFFERENT THINGS FROM PLAYS. AFTER MORNING MEDS GIVEN HE LEFT THE ROOM WITH HIS BELONGINGS AND TOLD THE FLOOR WORKER WELL SERVICE HE WAS DISCHARGED. FOUND HIM ATTEMPTING TO LEAVE AND REDIRECTED HIM TO HIS ROOM. WHILE WALKING BACK TO ROOM WOULD SAYS THEIR TRYING TO TRAP ME OR I BEING KEPT AGAINST MY WILL ALL THE WHILE SMILING AFTER SAYING THE PHRASES. PT BEGAN REPORTING IT LOOKED LIKE THERE WAS A CIRCUS COMING IN LATE THIS MORNING WHILE LOOKING OUT THE WINDOW. THE DAY PROGRESSED HE APPEARED TO BE TALKING TO HIMSELF IN THE ROOM. WHILE AT LUNCH STUDENT NURSE NOTED HIM TO BE INCREASING IN HALLUCINATIONS. BOTTLE CAPPER IN TO DISCUSS NEBULIZER ORDER AND NEEDED A HOME ADDRESS. WHEN IT WAS NOTED HE HAD A P.O. BOX AND WAS ASKED ABOUT HIS HOME ADDRESS HE SAID HE WOULDN'T GIVE IT AND NO ONE WAS TO CALL HIS . AT THAT POINT HE WALKED QUICKLY OUT OF THE ROOM AND WENT DOWN THE APARICIO. STUDENT NURSE ASKED IF SHE COULD WALK WITH HIM AND HE SAID NO. CLOVER RN LOCATED PT FURTHER DOWN THE HALLWAY AND ATTEMPTED TO REDIRECT PT BACK TO HIS ROOM AND APPARENTLY HE STATED HE WASN'T GOING ANYWHERE BUT "THAT WAY" POINTING DOWN [facility] HALLWAY. OBSERVED WALKING DOWN THE APARICIO AND THEN GOING IN TO ROOM 314. CLOVER REPORTS PT HAD GONE IN TO BATHROOM AND CLOSED THE DOOR. A LOUD NOISE WAS HEARD. WHEN DOOR OPENED A CRACK TO CHECK IN PT HAD FALLEN PT HAD A METAL STICK AND WAS WIELDING IT TOWARD THE DOOR. DOOR WAS PROMPTLY CLOSED AND SECURITY WAS CALLED. DUE TO DOOR BEING OPEN TO 2 ROOMS ROOM 312 DOOR HELD CLOSED BY STAFF FOR SAFETY WHILE ATTEMPTING TO SPEAK TO PT THROUGH 314 BATHROOM DOOR. ANY TIME DOOR WAS OPENED TO TALK TO PT HE WOULD APPEAR TO THREATEN WHOEVER WAS ON THE OTHER SIDE OF THE DOOR WITH THE METAL PIPE. SEVERAL TIMES LOUD NOISES WERE HEARD IN THE BATHROOM AND BANGING ON THE WALL. SECURITY REQUESTED POLICE TO BE CALLED DUE TO "A WE[place]ON BEING USED". POLICE CALLED. APPROX 5-10 MINUTES LATER KOBUK FROM SECURITY REPORTED WHEN DOOR WAS OPENED PT ATTEMPTED TO USE PIPE THROUGH THE DOOR AND KOBUK WAS ABLE TO CLOSE THE DOOR ON THE PIPE AND REMOVE IT FROM PTS MATTRESS FINISHER. AT THAT POINT KOBUK ABLE TO REACH IN TO BATHROOM AND REMOVE PT FROM BATHROOM AND COAX HIM IN TO A W/C. RETURNED TO PTS OWN ROOM WITH HIM APOLOGIZING. THAD, BOTTLE CAPPER, DURING PTS EPISODE HAD CALLED S.O. AND DAUGHTER. DAUGHTER WAS ENROUTE AND WAS ABLE TO CLARIFY THAT PT HAS HAD SEVERAL EPISODES AT HOME OF INCREASED AGITATION AND AGGRESSIVE BEHAVIORS BUT HAS NEVER HIT FAMILY. ONCE PT IN ROOM HE DID REPORT HE WAS HALLUCINATING OTTERS IN WATER ON THE FLOOR OF HIS ROOM. MD HAD BEEN NOTIFIED OF INCIDENT AND HAD ARRIVED WHILE PT IN 314 BATHROOM. MD'S CAME TO PT ROOM AND DISCUSSED PT WITH DAUGHTER. DISCHARGE INSTRUCTIONS COMPLETED AND DISCUSSED WITH DAUGHTER. PT VERY ANXIOUS AND WANTING TO LEAVE THE ROOM AT THE TIME DISCHARGE WAS BEING DISCUSSED SO IT WAS TALKED ABOUT OUTSIDE FOR PT COMFORT.
== END 2022-11-19 15:45 | disposition home or self-care (01) | DRG 871 ==
LOC: ER 19:33 → MEDS 19:34
PROVIDERS: Emergency Medicine; Family Medicine; Family Medicine Adult Medicine; ADMIT Internal Medicine
DX: A41.9 Sepsis, unspecified organism (principal); J18.9 Pneumonia, unspecified organism; J96.01 Acute respiratory failure with hypoxia; N17.9 Acute kidney failure, unspecified; J81.1 Chronic pulmonary edema; R45.851 Suicidal ideations; E87.20 Acidosis, unspecified; G61.0 Guillain-Barre syndrome; J84.9 Interstitial pulmonary disease, unspecified; E87.1 Hypo-osmolality and hyponatremia; R79.89 Other specified abnormal findings of blood chemistry; D64.9 Anemia, unspecified; K21.9 Gastro-esophageal reflux disease without esophagitis; I10 Essential (primary) hypertension; E87.6 Hypokalemia; E11.9 Type 2 diabetes mellitus without complications; H35.30 Unspecified macular degeneration; E86.0 Dehydration; H10.9 Unspecified conjunctivitis; E87.70 Fluid overload, unspecified; Z20.822 Contact with and (suspected) exposure to COVID-19; Z87.891 Personal history of nicotine dependence; Z98.890 Other specified postprocedural states; Z98.52 Vasectomy status; Z90.49 Acquired absence of other specified parts of digestive tract; Z98.49 Cataract extraction status, unspecified eye; Z85.828 Personal history of other malignant neoplasm of skin; Z79.899 Other long term (current) drug therapy; Z77.090 Contact with and (suspected) exposure to asbestos; Z79.811 Long term (current) use of aromatase inhibitors
CPT/HCPCS: 0241U; 36415; 71046; 80048; 80053; 80069; 82803; 82947; 83605; 83735; 83880; 84100; 84145; 85025; 87040; 93005; 93010; 93306; 94640; 94664; 94760; 96365; 96366; 96375; 99285-25; A9270; J0456; J0696; J1650; J2405; J7030; J7050

== ENCOUNTER 2022-11-19 17:18 | Observation (INO) | payer OTHER ==
[~2022-11-19] VITALS: Ht 165.1 cm; Wt 85.1 kg
[~2022-11-19 17:18] MED LIST changes: +ALBU2.5V5 INH; +CEFP200 PO; +Ciprofloxacin2.5 ML IO; +LISI20; +ROBITUSSIN DM PO; +VISBIOME 112.51 EACH PO
--- NOTE | 2022-11-20 01:13 | NUR ---
RN NOTE; PHYSICIAN CONTACT PT ARRIVED TO ROOM WITH NO IV ACCESS. PT HX OF AUDITORY/VISUAL HALLUCINATIONS WITH BEHAVIORS. CALL TO DIRECTOR LABOR STANDARDS/DR BEST. NEW ORDER FOR NO IV ACCESS AND SWITCH IV ZOFRAN TO PO ZOFRN.
--- NOTE | 2022-11-20 01:19 | NUR ---
NEW ADMIT PT ARRIVED TO ROOM AT 2115; 11/19/22. PT WAS ABLE TO FOLLOW DIRECTIONS AND TRANSFER TO BED W/SBA. PT A/OX3. REPORTS OF AUDITORY/VISUAL HALLUCINATIONS. NO SIGNS OF DISTRESS OR HALLULCINATIONS DURING TIME OF ARRIVAL OR INITIAL ASSESSMENT. SKIN INTACT W/MILD REDNESS IN COCCYX/GROIN AREA. 2ND LEAD WAREHOUSE ASSOCIATE BY NICOLE CURRAN. ORIENTED PT TO ROOM/CALL LIGHT. CALL LIGHT ACCESSIBLE. BED LOCKED/LOW. ALARM SET FOR SAFETY. EDUCATED PT ON BED ALARM.
--- NOTE | 2022-11-20 06:10 | NUR ---
BONDING MACHINE OPERATOR SUMMARY PT HAVING AUDIO/VISUAL HALLUCINATIONS. PT ABLE TO SLEEP WELL UNTIL 0400; THEN PERIODS OF WAKEFULNESS, OCCASIONAL CALLING OUT AT THINGS NOT PRESENT. PT SO FAR HAS BEEN REDIRECTABLE, NOT IMPULSIVE. CAN ANSWER ORIENTATION QUESTIONS ACCURATELY SOMETIMES; OTHER TIMES NOT. VITAL SIGNS REVIEWED/STABLE. PT HAS A LOOSE PRODUCTIVE COUGH W/THICK CLEAR MUCOUS. CALL LIGHT ACCESSIBLE. BED ALARM SET. WILL CONT TO MONITOR.
[2022-11-20 09:32] LABS: Thyroid Stimulating Hormone 1.38 uIU/mL (0.360-4.800)
--- NOTE | 2022-11-20 18:53 | NUR ---
Received report from ongoing nurse. Pt at bedside sitting in the chair. Pt axox2-3. Pt resting comfortably. Will continue to monitor.
[2022-11-21 05:54] LABS: Hematocrit 39.8 % (37.0-53.0)
[2022-11-21 06:28] LABS: Bun/Creatinine Ratio 18.2 (12.0-20.0); Calcium, Blood 8.7 mg/dL (8.5-10.1); Creatinine, Blood 0.93 mg/dL (0.60-1.20); Potassium, Blood 3.7 mmol/L (3.5-5.5)
--- NOTE | 2022-11-21 06:28 | NUR ---
PATIENT COMPLAINED OF SEVERE BACK PAIN WITH FREQUENT SPASMS FOR THE FIRST FEW HOURS OF THE SHIFT. NO HALLLUCINATIONS OR AGITATION NOTED. K PAD FOR WARMTH AND NEW ORDER FOR HYDROCODONE GOT HIM VERY COMFORTABLE WITHIN AN HOUR, AND HE SLEPT ALL NIGHT. VSS, PATIENT VOIDED TWICE IN THE TOILET PRIOR TO GOING TO BED, DESPITE INSTRUCTIONS TO LEAVE SAMPLE FOR CULTURE. WILL INFORM ONCOMING RN
[2022-11-21 07:38] LABS: Source, Urine Clean Catch
[2022-11-21 07:46] LABS: Appearance, Urine Clear (Clear); Bilirubin, Urine Neg (Neg); Blood, Urine Neg (Neg); Color, Urine Yellow (P-Yellow); Glucose Qualitative, Urine Neg (Neg); Ketones, Urine Neg (Neg); Leukocyte Esterase, Urine Neg (Neg); Nitrite, Urine Neg (Neg); Protein, Urine 1+ (Neg); Urobilinogen, Urine 2+ (Normal); pH, Urine 6.5 (5.0-8.0)
[2022-11-21] MEDS ORDERED: ACET325 PO (11:59)
[2022-11-21] MEDS ORDERED: OLAN2.5 PO (12:00)
[2022-11-21] MEDS ORDERED: LIDO700A20 TOP (12:00)
[2022-11-21] MEDS ORDERED: TRAZ50 PO (12:01)
--- NOTE | 2022-11-21 12:50 | NUR ---
Received report from ongoing nurse. Pt complaining of back pain. Medicated per emar. Discharged orders placed and daughter made aware. Prescriptions sent to pharmacy. pt dc with all belongings and discharge instructions.
== END 2022-11-21 12:30 | disposition home or self-care (01) ==
LOC: ER 17:18 → MEDS 17:19
PROVIDERS: Family Medicine; Family Medicine Adult Medicine; ADMIT Internal Medicine
DX: R41.0 Disorientation, unspecified (principal); R44.1 Visual hallucinations; N17.9 Acute kidney failure, unspecified; J61 Pneumoconiosis due to asbestos and other mineral fibers; D64.9 Anemia, unspecified; R79.89 Other specified abnormal findings of blood chemistry; K21.9 Gastro-esophageal reflux disease without esophagitis; I10 Essential (primary) hypertension; M54.50 Low back pain, unspecified; E11.9 Type 2 diabetes mellitus without complications; E78.5 Hyperlipidemia, unspecified; Z86.010 Personal history of colon polyps; Z87.891 Personal history of nicotine dependence; Z79.899 Other long term (current) drug therapy
CPT/HCPCS: 36415; 70450; 80048; 82607; 82746; 84443; 85014; 85018; 94760; 96372; 99285; A9270; G0378; J1630; J1650

== ENCOUNTER 2023-03-27 18:06 | Emergency (ER) | payer OTHER ==
[~2023-03-27] VITALS: Ht 167.6 cm; Wt 90.7 kg
[~2023-03-27 18:06] MED LIST changes: +ACET325 PO; +LIDO700A20 TOP; +OLAN2.5 PO; +TRAZ50 PO
[2023-03-27 18:10] VITALS: BP 105/80
[2023-03-27] MEDS ORDERED: HYDCHL25 PO (18:31)
[2023-03-27] MEDS ORDERED: TAMSULOSIN HCL0.4 M1 PO (18:32)
[2023-03-27] MEDS ORDERED: OMEP20ER PO (18:35)
[2023-03-27] MEDS ORDERED: LISI20 PO (18:37)
[2023-03-27] MEDS ORDERED: AMOCLA875 PO (20:02)
== END 2023-03-27 20:08 | disposition home or self-care (01) ==
LOC: ER 18:06
DX: S61.451A Open bite of right hand, initial encounter (principal); S60.512A Abrasion of left hand, initial encounter; W54.0XXA Bitten by dog, initial encounter; Z79.899 Other long term (current) drug therapy; I10 Essential (primary) hypertension; Z87.891 Personal history of nicotine dependence
CPT/HCPCS: 73130; 90471; 90714; 99283-25; A9270

== ENCOUNTER 2023-06-09 09:22 | Emergency (ER) | payer OTHER ==
[~2023-06-09] VITALS: Ht 167.6 cm; Wt 88.9 kg
[~2023-06-09 09:22] MED LIST changes: +AMOCLA875 PO; +LISI20 PO; +TAMSULOSIN HCL0.4 M1 PO
[2023-06-09 09:26] VITALS: BP 170/77
[2023-06-09] MEDS ORDERED: PRED20 PO (10:04)
[2023-06-09] MEDS ORDERED: AMOX875 PO (10:04)
== END 2023-06-09 10:48 | disposition home or self-care (01) ==
LOC: ER 09:22
DX: G51.0 Bell's palsy (principal); K08.89 Other specified disorders of teeth and supporting structures; I10 Essential (primary) hypertension; E11.9 Type 2 diabetes mellitus without complications; E66.9 Obesity, unspecified; Z68.31 Body mass index [BMI] 31.0-31.9, adult; Z87.891 Personal history of nicotine dependence; Z79.899 Other long term (current) drug therapy
CPT/HCPCS: A9270; J7512

== ENCOUNTER 2024-04-27 16:45 | Emergency (ER) | payer OTHER ==
[~2024-04-27] VITALS: Ht 175.3 cm; Wt 74.8 kg
[~2024-04-27 16:45] MED LIST changes: -Aspir 8181 MG PO; -EFUDEX40 GM TOP; -FLUTICASONE PRO16 GM NS; -TRIDERM28.4 GM TOP
[2024-04-27 17:39] LABS: BASOPHILS ABSOLUTE AUTO 0.05 K/mm3 (0.00-0.23); BASOPHILS PERCENT AUTO 1 % (0-2); EOSINOPHILS ABSOLUTE AUTO 0.01 K/mm3 (0.00-0.68); EOSINOPHILS PERCENT AUTO 0 % (0-6); Hematocrit 38.9 % (37.0-53.0); Hemoglobin 12.1 g/dL (13.5-17.5); IMMATURE GRAN ABSOLUTE AUTO 0.01 K/mm3 (0.00-0.10); IMMATURE GRAN PERCENT AUTO 0 % (0-1); LYMPHOCYTES ABSOLUTE AUTO 1.09 K/mm3 (0.84-5.20); LYMPHOCYTES PERCENT AUTO 17 % (21-46); MONOCYTES ABSOLUTE AUTO 0.34 K/mm3 (0.16-1.47); MONOCYTES PERCENT AUTO 5 % (4-13); Mean Corpuscular HGB 25.5 pg (26.0-34.0); Mean Corpuscular HGB Conc 31.1 g/dL (31.5-36.5); Mean Corpuscular Volume 82 fL (80-100); Mean Platelet Volume 10.4 fL (9.1-12.4); NEUTROPHILS ABSOLUTE AUTO 4.84 K/mm3 (1.96-9.15); NEUTROPHILS PERCENT AUTO 76 % (41-73); Platelet Count 196 K/mm3 (150-400); RDW Coefficient Variation 15.4 % (11.7-14.2); RDW Standard Deviation 46.5 fL (35.1-46.3); Red Blood Cell Count 4.74 M/mm3 (4.30-5.90); White Blood Cell Count 6.34 K/mm3 (4.00-11.30)
[2024-04-27 17:52] LABS: Influenza A, PCR NEGATIVE (NEGATIVE); Influenza B, PCR NEGATIVE (NEGATIVE); Resp Syncytial Virus, PCR NEGATIVE (NEGATIVE); SARS-Cov-2 (COVID-19) PCR, MMC NEGATIVE (NEGATIVE)
[2024-04-27 17:58] LABS: Albumin, Blood 3.4 g/dL (3.4-5.0); Albumin/Globulin Ratio 0.8 (0.8-1.8); Bilirubin, Total 0.6 mg/dL (0.1-1.0); Bun/Creatinine Ratio 28.8 (12.0-20.0); Calcium, Blood 8.9 mg/dL (8.5-10.1); Creatinine, Blood 0.94 mg/dL (0.60-1.20); Globulin, Blood 4.1 g/dL (2.2-4.0); Potassium, Blood 4.7 mmol/L (3.5-5.5); Total Protein, Blood 7.5 g/dL (6.4-8.2)
[2024-04-27] MEDS ORDERED: NS 1,000 ML IV SCH (22:10)
[2024-04-27] MEDS ORDERED: Ipratropium/Albuterol SulF 2.5-0.5MG/3 ML Amp INH ONE (22:15)
[2024-04-27] MEDS ORDERED: CYCL10 PO (22:54)
[2024-04-27] MEDS ORDERED: TRIDERM28.4 GM TOP (22:54)
[2024-04-27] MEDS ORDERED: Aspir 8181 MG PO (22:55)
[2024-04-27] MEDS ORDERED: EFUDEX40 GM TOP (22:57)
[2024-04-27] MEDS ORDERED: FLUTICASONE PRO16 GM NS (22:58)
[2024-04-28 00:20] LABS: Source, Urine Voided
[2024-04-28 00:22] LABS: Bilirubin, Urine Neg (Neg); Blood, Urine Neg (Neg); Glucose Qualitative, Urine Neg (Neg); Ketones, Urine 2+ (Neg); Leukocyte Esterase, Urine Neg (Neg); Nitrite, Urine Neg (Neg); Protein, Urine Neg (Neg); Urobilinogen, Urine NORM (Normal)
[2024-04-28 00:49] LABS: Appearance, Urine Clear (Clear); Color, Urine Yellow (P-Yellow)
[2024-04-28] MEDS ORDERED: Prednisone20 MG PO (00:56)
[2024-04-28] MEDS ORDERED: ALBU90OI INH (00:56)
[2024-04-28 01:11] VITALS: BP 184/86
== END 2024-04-28 01:12 | disposition home or self-care (01) ==
LOC: ER 16:45
PROVIDERS: Emergency Medicine; Physician Assistant
DX: R06.00 Dyspnea, unspecified (principal); R42 Dizziness and giddiness; S49.92XA Unspecified injury of left shoulder and upper arm, initial encounter; I10 Essential (primary) hypertension; E11.9 Type 2 diabetes mellitus without complications; Z87.891 Personal history of nicotine dependence; Z79.52 Long term (current) use of systemic steroids; Z79.899 Other long term (current) drug therapy; Z79.82 Long term (current) use of aspirin; Z11.52 Encounter for screening for COVID-19
CPT/HCPCS: 0241U; 71045; 80053; 81003; 83605; 84484; 85025; 93005; 93010; 94640; 94664; 99285-25; J7030

== ENCOUNTER → 2024-04-27 | Outpatient (CLI) | payer OTHER ==
[~2024-04-27] MED LIST changes: +ALBU90OI INH; +ARTIFICIAL TEAR15 M2 BOTHEYES; +ATEN25 PO; +AZELASTINE137 MCG/01; +Aspir 8181 MG PO; +BUSP5 PO; +CENTRUM SILVER1 EAC2 PO; +EFUDEX40 GM TOP; +FLUTICASONE PRO16 GM NS; +Flomax0.4 MG PO; +PRED20 PO; +Prednisone10 MG; +TRIDERM28.4 GM TOP; +Voltaren100 GM TOP; +ZOCOR20 MG PO
== END ==
LOC: LAB SHORT 18:21 → LAB 18:21
DX: J06.9 Acute upper respiratory infection, unspecified (principal)
CPT/HCPCS: 87070; 87205

== ENCOUNTER 2024-06-03 17:25 | Emergency (ER) | payer OTHER ==
[~2024-06-03] VITALS: Ht 172.7 cm; Wt 72.6 kg
[~2024-06-03 17:25] MED LIST changes: +Aspir 8181 MG PO; +EFUDEX40 GM TOP; +FLUTICASONE PRO16 GM NS; +TRIDERM28.4 GM TOP
[2024-06-03 18:02] LABS: BASOPHILS ABSOLUTE AUTO 0.05 K/mm3 (0.00-0.23); BASOPHILS PERCENT AUTO 1 % (0-2); EOSINOPHILS ABSOLUTE AUTO 0.16 K/mm3 (0.00-0.68); EOSINOPHILS PERCENT AUTO 3 % (0-6); Hematocrit 37.6 % (37.0-53.0); Hemoglobin 11.6 g/dL (13.5-17.5); IMMATURE GRAN ABSOLUTE AUTO 0.01 K/mm3 (0.00-0.10); IMMATURE GRAN PERCENT AUTO 0 % (0-1); LYMPHOCYTES ABSOLUTE AUTO 1.68 K/mm3 (0.84-5.20); LYMPHOCYTES PERCENT AUTO 35 % (21-46); MONOCYTES ABSOLUTE AUTO 0.65 K/mm3 (0.16-1.47); MONOCYTES PERCENT AUTO 14 % (4-13); Mean Corpuscular HGB 25.1 pg (26.0-34.0); Mean Corpuscular HGB Conc 30.9 g/dL (31.5-36.5); Mean Corpuscular Volume 81 fL (80-100); Mean Platelet Volume 9.4 fL (9.1-12.4); NEUTROPHILS ABSOLUTE AUTO 2.28 K/mm3 (1.96-9.15); NEUTROPHILS PERCENT AUTO 47 % (41-73); Platelet Count 174 K/mm3 (150-400); RDW Coefficient Variation 15.4 % (11.7-14.2); RDW Standard Deviation 45.5 fL (35.1-46.3); Red Blood Cell Count 4.63 M/mm3 (4.30-5.90); White Blood Cell Count 4.83 K/mm3 (4.00-11.30)
[2024-06-03 18:25] LABS: Influenza A, PCR NEGATIVE (NEGATIVE); Influenza B, PCR NEGATIVE (NEGATIVE); Resp Syncytial Virus, PCR NEGATIVE (NEGATIVE); SARS-Cov-2 (COVID-19) PCR, MMC NEGATIVE (NEGATIVE)
[2024-06-03 18:45] LABS: Albumin, Blood 2.8 g/dL (3.4-5.0); Albumin/Globulin Ratio 0.7 (0.8-1.8); Bilirubin, Total 0.3 mg/dL (0.1-1.0); Bun/Creatinine Ratio 20.9 (12.0-20.0); Calcium, Blood 8.4 mg/dL (8.5-10.1); Creatinine, Blood 1.1 mg/dL (0.60-1.20); Globulin, Blood 3.9 g/dL (2.2-4.0); Potassium, Blood 3.9 mmol/L (3.5-5.5); Total Protein, Blood 6.7 g/dL (6.4-8.2)
[2024-06-03 21:00] VITALS: BP 144/78
[2024-06-03] MEDS ORDERED: Ipratropium/Albuterol SulF 2.5-0.5MG/3 ML Amp INH ONE (21:00)
[2024-06-03] MEDS ORDERED: MethylPREDNISolone Sod Succ 125 MG Vial IV ONE (21:00)
[2024-06-03] MEDS ORDERED: ALBU2.5V5 INH (21:39)
[2024-06-03] MEDS ORDERED: PRED20 PO (21:39)
[2024-06-03] MEDS ORDERED: AZIT250 PO (21:39)
[2024-06-03] MEDS ORDERED: BENZ100A PO (21:39)
== END 2024-06-03 21:42 | disposition home or self-care (01) ==
LOC: ER 17:25
PROVIDERS: Physician Assistant
DX: J44.1 Chronic obstructive pulmonary disease with (acute) exacerbation (principal); I10 Essential (primary) hypertension; E11.9 Type 2 diabetes mellitus without complications; M19.90 Unspecified osteoarthritis, unspecified site; Z87.891 Personal history of nicotine dependence; Z79.52 Long term (current) use of systemic steroids; Z79.82 Long term (current) use of aspirin; Z79.899 Other long term (current) drug therapy
CPT/HCPCS: 0241U; 71046; 80053; 83880; 84484; 85025; 93005; 93010; 94640; 94664; 96374; 99284-25; J2919

== ENCOUNTER 2024-11-01 05:52 | Emergency (ER) | payer OTHER ==
[~2024-11-01] VITALS: Ht 167.6 cm; Wt 77.1 kg
[~2024-11-01 05:52] MED LIST changes: +AZIT250 PO; +BENZ100A PO
[2024-11-01 06:48] LABS: BASOPHILS ABSOLUTE AUTO 0.08 K/mm3 (0.00-0.23); BASOPHILS PERCENT AUTO 1 % (0-2); EOSINOPHILS ABSOLUTE AUTO 0.17 K/mm3 (0.00-0.68); EOSINOPHILS PERCENT AUTO 3 % (0-6); Hematocrit 33.1 % (37.0-53.0); Hemoglobin 10.2 g/dL (13.5-17.5); Mean Corpuscular HGB 22.3 pg (26.0-34.0); Mean Corpuscular HGB Conc 30.8 g/dL (31.5-36.5); Mean Corpuscular Volume 72 fL (80-100); Mean Platelet Volume 10.2 fL (9.1-12.4); Platelet Count 202 K/mm3 (150-400); RDW Coefficient Variation 16.4 % (11.7-14.2); Red Blood Cell Count 4.58 M/mm3 (4.30-5.90); White Blood Cell Count 5.73 K/mm3 (4.00-11.30)
[2024-11-01 06:58] LABS: IMMATURE GRAN PERCENT AUTO 0 % (0-1); LYMPHOCYTES ABSOLUTE AUTO 1.79 K/mm3 (0.84-5.20); LYMPHOCYTES PERCENT AUTO 31 % (21-46); MONOCYTES ABSOLUTE AUTO 0.62 K/mm3 (0.16-1.47); MONOCYTES PERCENT AUTO 11 % (4-13); NEUTROPHILS ABSOLUTE AUTO 3.07 K/mm3 (1.96-9.15); NEUTROPHILS PERCENT AUTO 54 % (41-73)
[2024-11-01 07:08] LABS: Albumin, Blood 3.1 g/dL (3.4-5.0); Albumin/Globulin Ratio 0.8 (0.8-1.8); Bilirubin, Total 0.4 mg/dL (0.1-1.0); Bun/Creatinine Ratio 22.6 (12.0-20.0); Calcium, Blood 9.1 mg/dL (8.5-10.1); Creatinine, Blood 1.06 mg/dL (0.60-1.20); Potassium, Blood 3.7 mmol/L (3.5-5.5); Total Protein, Blood 7.1 g/dL (6.4-8.2)
[2024-11-01 07:59] LABS: CORONAVIRUS COVID-19 AG Negative (NEGATIVE); INFLUENZA A AG Negative (NEGATIVE); INFLUENZA B AG Negative (NEGATIVE)
[2024-11-01] MEDS ORDERED: NS 1,000 ML IV SCH (10:30)
[2024-11-01] MEDS ORDERED: ALFUZOSIN HCL10 MG PO (10:42)
[2024-11-01] MEDS ORDERED: TRELEGY ELLIPT1 EACH (10:43)
[2024-11-01] MEDS ORDERED: Ipratropium/Albuterol SulF 2.5-0.5MG/3 ML Amp INH ONE (10:50)
[2024-11-01] MEDS ORDERED: AZIT250 PO (11:59)
[2024-11-01 13:15] VITALS: BP 132/73
== END 2024-11-01 14:01 | disposition home or self-care (01) ==
LOC: ER 05:52
PROVIDERS: Emergency Medicine
DX: R06.02 Shortness of breath (principal); R05.9 Cough, unspecified; I10 Essential (primary) hypertension; E11.9 Type 2 diabetes mellitus without complications; M19.90 Unspecified osteoarthritis, unspecified site; J44.9 Chronic obstructive pulmonary disease, unspecified; Z87.891 Personal history of nicotine dependence; Z79.899 Other long term (current) drug therapy; Z79.52 Long term (current) use of systemic steroids; Z79.82 Long term (current) use of aspirin; Z79.51 Long term (current) use of inhaled steroids
CPT/HCPCS: 71046; 80053; 84484; 85025; 87428-QW; 93005; 93010; 94640; 94664; 99285-25; J7030

== ENCOUNTER 2024-12-21 13:49 | Emergency (ER) | payer OTHER ==
[~2024-12-21] VITALS: Ht 170.2 cm; Wt 77.1 kg
[~2024-12-21 13:49] MED LIST changes: +ALFUZOSIN HCL10 MG PO; +TRELEGY ELLIPT1 EACH
[2024-12-21] MEDS ORDERED: Albuterol 2.5 MG/3 ML VIAL INH SCH (14:10)
[2024-12-21] MEDS ORDERED: MethylPREDNISolone Sod Succ 125 MG Vial IV ONE (14:10)
[2024-12-21] MEDS ORDERED: NS 500 ML IV SCH (14:15)
[2024-12-21 14:28] LABS: BASOPHILS ABSOLUTE AUTO 0.07 K/mm3 (0.00-0.23); BASOPHILS PERCENT AUTO 1 % (0-2); EOSINOPHILS ABSOLUTE AUTO 0.08 K/mm3 (0.00-0.68); EOSINOPHILS PERCENT AUTO 1 % (0-6); Hematocrit 33.4 % (37.0-53.0); Hemoglobin 9.9 g/dL (13.5-17.5); IMMATURE GRAN ABSOLUTE AUTO 0.01 K/mm3 (0.00-0.10); IMMATURE GRAN PERCENT AUTO 0 % (0-1); LYMPHOCYTES ABSOLUTE AUTO 1.58 K/mm3 (0.84-5.20); LYMPHOCYTES PERCENT AUTO 26 % (21-46); MONOCYTES ABSOLUTE AUTO 0.49 K/mm3 (0.16-1.47); MONOCYTES PERCENT AUTO 8 % (4-13); Mean Corpuscular HGB 21.7 pg (26.0-34.0); Mean Corpuscular HGB Conc 29.6 g/dL (31.5-36.5); Mean Corpuscular Volume 73 fL (80-100); Mean Platelet Volume 10.1 fL (9.1-12.4); NEUTROPHILS ABSOLUTE AUTO 3.95 K/mm3 (1.96-9.15); NEUTROPHILS PERCENT AUTO 64 % (41-73); Platelet Count 203 K/mm3 (150-400); RDW Coefficient Variation 17.2 % (11.7-14.2); RDW Standard Deviation 45.5 fL (35.1-46.3); Red Blood Cell Count 4.56 M/mm3 (4.30-5.90); White Blood Cell Count 6.18 K/mm3 (4.00-11.30)
[2024-12-21 14:46] LABS: Bun/Creatinine Ratio 27.8 (12.0-20.0); Calcium, Blood 8.7 mg/dL (8.5-10.1); Creatinine, Blood 1.15 mg/dL (0.60-1.20); Potassium, Blood 3.7 mmol/L (3.5-5.5)
[2024-12-21 14:50] LABS: Base Excess Venous 1.9 mmol/L; Bicarbonate Venous 25.9 mmol/L (24.0-30.0); PCO2 Venous 41.9 mmHg (38-42); pH Blood Venous 7.41 (7.34-7.37)
[2024-12-21 15:29] LABS: Influenza A, PCR NEGATIVE (NEGATIVE); Influenza B, PCR NEGATIVE (NEGATIVE); Resp Syncytial Virus, PCR NEGATIVE (NEGATIVE); SARS-Cov-2 (COVID-19) PCR, MMC NEGATIVE (NEGATIVE)
[2024-12-21] MEDS ORDERED: AZIT250 PO (17:31)
[2024-12-21] MEDS ORDERED: PRED20 PO (17:31)
[2024-12-21 18:00] VITALS: BP 124/72
== END 2024-12-21 18:01 | disposition home or self-care (01) ==
LOC: ER 13:49
PROVIDERS: Emergency Medicine
DX: R06.02 Shortness of breath (principal); J98.4 Other disorders of lung; Z59.89 Other problems related to housing and economic circumstances; Z87.891 Personal history of nicotine dependence; I10 Essential (primary) hypertension; E11.9 Type 2 diabetes mellitus without complications; J44.9 Chronic obstructive pulmonary disease, unspecified; Z79.51 Long term (current) use of inhaled steroids; Z79.84 Long term (current) use of oral hypoglycemic drugs; Z79.82 Long term (current) use of aspirin; Z79.2 Long term (current) use of antibiotics
CPT/HCPCS: 0241U; 71045; 80048; 82803; 83880; 84484; 85025; 93005; 93010; 94644; 94664; 96361; 96374; 99285-25; J2919; J7030

== ENCOUNTER → 2025-02-22 | Outpatient (CLI) | payer OTHER ==
[2025-02-22 14:21] LABS: BASOPHILS ABSOLUTE AUTO 0.08 K/mm3 (0.00-0.23); BASOPHILS PERCENT AUTO 1 % (0-2); EOSINOPHILS ABSOLUTE AUTO 0.17 K/mm3 (0.00-0.68); EOSINOPHILS PERCENT AUTO 3 % (0-6); Hematocrit 31.4 % (37.0-53.0); Hemoglobin 9.1 g/dL (13.5-17.5); IMMATURE GRAN ABSOLUTE AUTO 0.03 K/mm3 (0.00-0.10); IMMATURE GRAN PERCENT AUTO 1 % (0-1); LYMPHOCYTES ABSOLUTE AUTO 1.61 K/mm3 (0.84-5.20); LYMPHOCYTES PERCENT AUTO 28 % (21-46); MONOCYTES ABSOLUTE AUTO 0.61 K/mm3 (0.16-1.47); MONOCYTES PERCENT AUTO 10 % (4-13); Mean Corpuscular Volume 73 fL (80-100); Mean Platelet Volume 9.6 fL (9.1-12.4); NEUTROPHILS ABSOLUTE AUTO 3.36 K/mm3 (1.96-9.15); NEUTROPHILS PERCENT AUTO 57 % (41-73); Platelet Count 211 K/mm3 (150-400); RDW Coefficient Variation 17.5 % (11.7-14.2); RDW Standard Deviation 45.8 fL (35.1-46.3); Red Blood Cell Count 4.33 M/mm3 (4.30-5.90); White Blood Cell Count 5.86 K/mm3 (4.00-11.30)
[2025-02-22 14:33] LABS: Albumin/Globulin Ratio 0.8 (0.8-1.8); Bilirubin, Total 0.4 mg/dL (0.1-1.0); Calcium, Blood 8.7 mg/dL (8.5-10.1); Creatinine, Blood 1.2 mg/dL (0.60-1.20); Potassium, Blood 4.1 mmol/L (3.5-5.5)
== END ==
LOC: LAB SHORT 14:17 → LAB 14:17
PROVIDERS: Family Medicine
DX: I95.9 Hypotension, unspecified (principal)
CPT/HCPCS: 80053; 85025

== ENCOUNTER → 2025-06-08 | Outpatient (CLI) | payer OTHER ==
[2025-06-08 19:29] LABS: BASOPHILS ABSOLUTE AUTO 0.12 K/mm3 (0.00-0.23); BASOPHILS PERCENT AUTO 2 % (0-2); EOSINOPHILS ABSOLUTE AUTO 0.16 K/mm3 (0.00-0.68); EOSINOPHILS PERCENT AUTO 3 % (0-6); Hematocrit 42.4 % (37.0-53.0); Hemoglobin 12.8 g/dL (13.5-17.5); IMMATURE GRAN ABSOLUTE AUTO 0.01 K/mm3 (0.00-0.10); IMMATURE GRAN PERCENT AUTO 0 % (0-1); LYMPHOCYTES ABSOLUTE AUTO 1.56 K/mm3 (0.84-5.20); LYMPHOCYTES PERCENT AUTO 25 % (21-46); MONOCYTES ABSOLUTE AUTO 0.64 K/mm3 (0.16-1.47); MONOCYTES PERCENT AUTO 10 % (4-13); Mean Corpuscular HGB Conc 30.2 g/dL (31.5-36.5); Mean Corpuscular Volume 84 fL (80-100); NEUTROPHILS ABSOLUTE AUTO 3.68 K/mm3 (1.96-9.15); NEUTROPHILS PERCENT AUTO 60 % (41-73); NRBC ABSOLUTE 0.00 K/mm3 (0.00-0.02); NRBC Auto 0.0 /100 WBC (0.0-0.2); Platelet Count 163 K/mm3 (150-400); RDW Coefficient Variation 21.6 % (11.7-14.2); RDW Standard Deviation 67.0 fL (35.1-46.3)
[2025-06-08 21:16] LABS: Ferritin, Serum 51.0 ng/mL (26-388); Total Iron Binding Capacity 234.0 ug/dL (250-450)
== END | disposition home or self-care (01) ==
LOC: LAB 15:03 → LAB SHORT 15:03
PROVIDERS: Internal Medicine Hematology & Oncology
DX: E61.1 Iron deficiency (principal)
CPT/HCPCS: 82728; 83540; 83550; 85025

== ENCOUNTER 2025-06-15 03:34 | Emergency (ER) | payer OTHER ==
[~2025-06-15] VITALS: Ht 167.6 cm; Wt 68.0 kg
[2025-06-15 03:53] VITALS: BP 146/85
[2025-06-15 05:46] LABS: Source, Urine Clean Catch
[2025-06-15 05:51] LABS: Bilirubin, Urine Neg (Neg); Color, Urine Yellow (P-Yellow); Glucose Qualitative, Urine Neg (Neg); Ketones, Urine Neg (Neg); Leukocyte Esterase, Urine Neg (Neg); Protein, Urine Neg (Neg); Specific Gravity, Urine 1.005 (1.003-1.022); Urobilinogen, Urine NORM (Normal)
[2025-06-15] MEDS ORDERED: TAMS.4ER PO (06:03)
[2025-06-15] MEDS ORDERED: ALFU10 PO (06:04)
== END 2025-06-15 06:10 | disposition home or self-care (01) ==
LOC: ER 03:34
PROVIDERS: Emergency Medicine
DX: Z76.0 Encounter for issue of repeat prescription (principal); I10 Essential (primary) hypertension; E11.9 Type 2 diabetes mellitus without complications; E78.5 Hyperlipidemia, unspecified; J44.9 Chronic obstructive pulmonary disease, unspecified; Z87.891 Personal history of nicotine dependence; Z79.82 Long term (current) use of aspirin; Z79.51 Long term (current) use of inhaled steroids; Z79.899 Other long term (current) drug therapy; Z59.89 Other problems related to housing and economic circumstances
CPT/HCPCS: 81003; 99281; A9270

== ENCOUNTER 2025-09-30 07:25 | Emergency (ER) | payer OTHER ==
[~2025-09-30] VITALS: Ht 167.6 cm; Wt 68.0 kg
[~2025-09-30 07:25] MED LIST changes: +ALFU10 PO; +TAMS.4ER PO
[2025-09-30] MEDS ORDERED: NS 1,000 ML IV SCH (07:35)
[2025-09-30 07:43] LABS: BASOPHILS ABSOLUTE AUTO 0.09 K/mm3 (0.00-0.23); BASOPHILS PERCENT AUTO 1 % (0-2); EOSINOPHILS ABSOLUTE AUTO 0.13 K/mm3 (0.00-0.68); EOSINOPHILS PERCENT AUTO 2 % (0-6); Hematocrit 46.9 % (37.0-53.0); Hemoglobin 15.4 g/dL (13.5-17.5); IMMATURE GRAN ABSOLUTE AUTO 0.01 K/mm3 (0.00-0.10); IMMATURE GRAN PERCENT AUTO 0 % (0-1); LYMPHOCYTES ABSOLUTE AUTO 1.83 K/mm3 (0.84-5.20); LYMPHOCYTES PERCENT AUTO 26 % (21-46); MONOCYTES ABSOLUTE AUTO 0.51 K/mm3 (0.16-1.47); MONOCYTES PERCENT AUTO 7 % (4-13); Mean Corpuscular HGB Conc 32.8 g/dL (31.5-36.5); Mean Corpuscular Volume 86 fL (80-100); NEUTROPHILS ABSOLUTE AUTO 4.61 K/mm3 (1.96-9.15); NEUTROPHILS PERCENT AUTO 64 % (41-73); NRBC ABSOLUTE 0.00 K/mm3 (0.00-0.02); NRBC Auto 0.0 /100 WBC (0.0-0.2); Platelet Count 209 K/mm3 (150-400); RDW Coefficient Variation 14.2 % (11.7-14.2); RDW Standard Deviation 45.4 fL (35.1-46.3)
[2025-09-30] MEDS ORDERED: PROAIR RESPICL90 MCG IH (08:11)
[2025-09-30 08:12] LABS: Alanine Aminotransfer (ALT/SGP 13.0 U/L (12-78); Albumin, Blood 3.5 g/dL (3.4-5.0); Albumin/Globulin Ratio 0.8 (0.8-1.8); Anion Gap 16.0 mmol/L (3-11); Aspartate Aminotrans (AST/SGOT 24.0 U/L (12-37); Bilirubin, Total 1.0 mg/dL (0.1-1.0); Blood Urea Nitrogen 19.0 mg/dL (8-24); CO2, Blood 21.0 mmol/L (21-32); Calcium, Blood 9.9 mg/dL (8.5-10.1); Chloride, Blood 105.0 mmol/L (98-108); Creatinine, Blood 1.56 mg/dL (0.60-1.20); Globulin, Blood 4.2 g/dL (2.2-4.0); Glucose, Blood 66.0 mg/dL (70-99); Magnesium, Blood 2.5 mg/dL (1.6-2.4); Potassium, Blood 3.8 mmol/L (3.5-5.5); Sodium, Blood 138.0 mmol/L (136-145); Total Protein, Blood 7.7 g/dL (6.4-8.2)
[2025-09-30] MEDS ORDERED: ANORO ELLIPTA1 EAC1 IH (08:12)
[2025-09-30] MEDS ORDERED: Ventolin5 MG/1 ML INH (08:12)
[2025-09-30] MEDS ORDERED: DULO30 (08:12)
[2025-09-30] MEDS ORDERED: SILDENAFIL CITR20 M1 PO (08:13)
[2025-09-30 08:30] VITALS: BP 131/95
[2025-09-30] MEDS ORDERED: ALFU10 PO (10:12)
[2025-10-04 06:59] LABS: Calcium, Ionized (POC) 1.00 mmol/L (1.10-1.46); Chloride (POC) 108 mmol/L (98-108); Creatinine (POC) 1.8 mg/dL (0.8-1.3); Glucose (ISTAT POC) 69 mg/dL (70-99); Hematocrit (POC) 46.0 % (41.0-53.0); Hemoglobin (POC) 15.6 g/dL (13.5-17.5); Potassium (POC) 3.8 mmol/L (3.5-5.5); Sodium (POC) 139 mmol/L (135-148); Total CO2 (POC) 19 mmol/L (21-32)
== END 2025-09-30 09:00 | disposition home or self-care (01) ==
LOC: ER 07:25
PROVIDERS: Emergency Medicine
DX: N17.9 Acute kidney failure, unspecified (principal); E86.1 Hypovolemia; E86.0 Dehydration; I10 Essential (primary) hypertension; E11.9 Type 2 diabetes mellitus without complications; M19.90 Unspecified osteoarthritis, unspecified site; J44.9 Chronic obstructive pulmonary disease, unspecified; Z87.891 Personal history of nicotine dependence; Z79.82 Long term (current) use of aspirin; Z79.51 Long term (current) use of inhaled steroids; Z79.899 Other long term (current) drug therapy
CPT/HCPCS: 80047; 80053; 83735; 84484; 85014; 85025; 93005; 93010; 96361; 96374; 99285-25; J7030

== ENCOUNTER 2025-09-30 09:21 | Day surgery (SDC) | payer OTHER ==
[~2025-09-30] VITALS: Ht 167.6 cm; Wt 70.8 kg
[~2025-09-30 09:21] MED LIST changes: +ANORO ELLIPTA1 EAC1 IH; +DULO30; +PROAIR RESPICL90 MCG IH; +SILDENAFIL CITR20 M1 PO; +Ventolin5 MG/1 ML INH
[2025-09-30] MEDS ORDERED: ALFU10 PO (10:12)
--- NOTE | 2025-09-30 10:26 | NUR ---
09/30/25 1026 Randy Flores 09/30/25 PATIENT CAME FROM ER WITH IV IN PLACE AND MA FLUSHED IT AND IT IS RUNNING WELL. -CMT
[2025-09-30] MEDS ORDERED: Benzocaine Oral Spray 0.5ML UD ONE (10:45)
[2025-09-30 12:17] VITALS: BP 134/82
--- NOTE | 2025-09-30 12:26 | NUR ---
09/30/25 1226 LEATHA [facility] TO [facility]
== END 2025-09-30 12:48 | disposition home or self-care (01) ==
LOC: ORSCSDS 09:21
DX: D50.9 Iron deficiency anemia, unspecified (principal); D12.0 Benign neoplasm of cecum; D12.2 Benign neoplasm of ascending colon; D12.4 Benign neoplasm of descending colon; K21.9 Gastro-esophageal reflux disease without esophagitis; K25.9 Gastric ulcer, unspecified as acute or chronic, without hemorrhage or perforation; K57.30 Diverticulosis of large intestine without perforation or abscess without bleeding; J44.9 Chronic obstructive pulmonary disease, unspecified; I10 Essential (primary) hypertension; Z79.899 Other long term (current) drug therapy; Z79.82 Long term (current) use of aspirin; G61.0 Guillain-Barre syndrome; E11.22 Type 2 diabetes mellitus with diabetic chronic kidney disease; I12.9 Hypertensive chronic kidney disease with stage 1 through stage 4 chronic kidney disease, or unspecified chronic kidney disease; N18.30 Chronic kidney disease, stage 3 unspecified; F41.8 Other specified anxiety disorders; Z87.891 Personal history of nicotine dependence
CPT/HCPCS: 88305; 88342; A9270; J2704; J7120